=== PATIENT | male | born 1985 | race Hispanic/Latino ===

== ENCOUNTER 2022-03-16 23:27 | Emergency (ER) | payer OTHER ==
[~2022-03-16] VITALS: Ht 167.6 cm; Wt 72.6 kg
[2022-03-16] MEDS ORDERED: TETRACAINE HCL 0.5% 4 ML OPHTH SOLN ONE (23:48)
[2022-03-16] MEDS ORDERED: FLUORESCEIN SODIUM 1 STRIP STRIP ONE (23:48)
[2022-03-17] MEDS ORDERED: TETRACAINE HCL 0.5% 4 ML OPHTH SOLN OP SCH
[2022-03-17] MEDS: FLUORESCEIN SODIUM 1 STRIP STRIP OP SCH ×2 (00:11→00:25)
[2022-03-17] MEDS ORDERED: POLYOS OS (00:21)
[2022-03-17 00:23] VITALS: BP 132/88
== END 2022-03-17 00:29 | disposition home or self-care (01) ==
LOC: EDH 23:27
DX: T15.02XA Foreign body in cornea, left eye, initial encounter (principal); X58.XXXA Exposure to other specified factors, initial encounter; Y93.89 Activity, other specified; Y92.89 Other specified places as the place of occurrence of the external cause; Y99.8 Other external cause status
CPT/HCPCS: 65222

== ENCOUNTER 2023-01-18 14:24 | Emergency (ER) | payer OTHER ==
[~2023-01-18] VITALS: Ht 167.6 cm; Wt 72.6 kg
[~2023-01-18 14:24] MED LIST: POLYOS OS
[2023-01-18 15:07] LABS: BASOPHILS % (AUTO) 0.4 % (0.0-5.0); EOSINOPHILS % (AUTO) 1.9 % (0.0-8.0); HEMATOCRIT 42.1 % (42-54); LYMPHOCYTES % (AUTO) 29.5 % (21.0-51.0); MEAN CORPUSCULAR HEMOGLOBIN 30.8 pg (27.0-33.0); MEAN CORPUSCULAR VOLUME 90.7 fL (79-99); MONOCYTES % (AUTO) 9.4 % (3.0-13.0); NEUTROPHILS % (AUTO) 58.4 % (40.0-77.0); PLATELET COUNT (AUTO) 297 K/uL (130-400); RED BLOOD CELL COUNT(AUTO) 4.64 MIL/uL (4.50-6.20); RED CELL DISTRIBUTION WIDTH 11.6 % (11.0-15.5); WHITE BLOOD COUNT (AUTO) 5.3 K/uL (4.8-10.8)
[2023-01-18 15:10] LABS: APPEARANCE,URINE CLEAR (CLEAR); BILIRUBIN,URINE NEGATIVE (NEGATIVE); COLOR,URINE COLORLESS (YELLOW); GLUCOSE, URINE (UA) NEGATIVE (NEGATIVE); KETONES,URINE NEGATIVE (NEGATIVE); LEUKOCYTE ESTERASE ,URINE NEGATIVE Leu/uL (NEGATIVE); NITRATE,URINE NEGATIVE (NEGATIVE); OCCULT BLOOD,URINE NEGATIVE (NEGATIVE); PH,URINE 7.5 (5.0-8.0); PROTEIN,URINE NEGATIVE (NEGATIVE); UROBILINOGEN,URINE 0.2 mg/dL (0.2-1.0)
[2023-01-18 15:19] LABS: CREATININE 0.9 mg/dL (0.5-1.5); POTASSIUM 4.2 mmol/L (3.5-5.1)
[2023-01-18 15:26] LABS: TOTAL PROTEIN, SERUM 7.5 g/dL (6.0-8.3)
[2023-01-18] MEDS ORDERED: TAMS-1 PO (16:56)
[2023-01-18 17:12] VITALS: BP 122/73
== END 2023-01-18 17:43 | disposition home or self-care (01) ==
LOC: EDH 14:24
DX: N20.0 Calculus of kidney (principal); R10.11 Right upper quadrant pain; K21.9 Gastro-esophageal reflux disease without esophagitis; Z90.49 Acquired absence of other specified parts of digestive tract
CPT/HCPCS: 36415; 74176; 80053; 81003; 83690; 85025

== ENCOUNTER 2025-01-14 06:40 | Inpatient (IN) | payer SELFPAY ==
[~2025-01-14] VITALS: Ht 167.6 cm; Wt 80.9 kg
[~2025-01-14 06:40] MED LIST changes: +ONDA-243 PO; +TAMS-1 PO
--- NOTE | 2025-01-14 07:34 | ERN ---
General Chief Complaint: Other Problems Stated Complaint: ANAL PAIN Time Seen by MD: 07:13 Source: patient History of Present Illness Initial Comments PATIENT IS A 39-YEAR-OLD MALE COMING IN TO BE EVALUATED FOR RECTAL PAIN. PATIENT STATES THAT THE RECTAL PAIN IS GETTING WORSE THE LAST COUPLE OF DAYS. HE STATES THAT THE PAIN IS UNBEARABLE. Allergies: Coded Allergies: No Known Drug Allergies (Unverified Allergy, Unknown, 03/16/22) Home Meds Active Scripts Ondansetron (Ondansetron Odt) 4 Mg Tab.rapdis, 4 MG PO Q6HPRN PRN for nausea, #16 TAB 0 Refills Prov:YOBANY CORREA Sr., MD 07/20/23 Tamsulosin HCl (Flomax) 0.4 Mg Cap.er.24h, 0.4 MG PO DAILY for KIDNEY STONES for 10 Days, #10 CAPSULE. Prov:INESSA VARGAS DNP 01/18/23 Polymyxin B Sulfate/Tmp (Polytrim Ophth Soln) 20 Drop/Ml Opsol, 3 DROP OS QID for 5 Days, #10 ML 10 Refills Prov:FELIX MALCOLM MD 03/17/22 Past Medical History Past Medical History: GERD Past Surgical History: Cholecystectomy Social History Social History: Negative, Lives with family, Other ROS Dictation CONSTITUTIONAL: NO CHILLS, NO FEVER, NO WEAKNESS, NO DIAPHORESIS, NO MALAISE. HEAD/FACE: NO SIGNS OF TRAUMA. EENT: NO EYE PAIN, NO BLURRED VISION, NO TEARING, NO DOUBLE VISION, NO EAR PAIN, NO EAR DISCHARGE, NO NOSE PAIN, NO NASAL CONGESTION, NO THROAT PAIN, NO THROAT SWELLING, NO MOUTH PAIN. RESPIRATORY: NO COUGH, NO ORTHOPNEA, NO SOB, NO STRIDOR, NO WHEEZING. CARDIOVASCULAR: NO CHEST PAIN, NO EDEMA, NO PALPITATIONS, NO SYNCOPE. GASTROINTESTINAL/ABDOMINAL: NO ABDOMINAL PAIN, NO CONSTIPATION, NO DIARRHEA, NO NAUSEA, NO VOMITING. GENITOURINARY: NO ABNORMAL DISCHARGE, NO DYSURIA, NO FREQUENT URINATION, NO HEMATURIA. NO COMPLAINTS OF PAIN IN THE GENITALS. MUSCULOSKELETAL: NO BACK PAIN, NO GOUT, NO JOINT PAIN, NO JOINT SWELLING, NO MUSCLE PAIN, NO MUSCLE STIFFNESS, NO NECK PAIN. INTEGUMENTARY: NO CHANGE IN COLOR, NO CHANGE IN HAIR/NAILS, NO DRYNESS, NO LESION, NO LUMPS, NO RASH. NEUROLOGICAL/PSYCH: NO ANXIETY, NOT DEPRESSED, NO EMOTIONAL PROBLEM, NO HEADACHE, NO NUMBNESS, NO PRE-EXISTING DEFICIT, NO HISTORY OF SEIZURES, NO TREMORS, NO WEAKNESS. HEMATOLOGIC/LYMPHATIC: NOT ANEMIC, NO HISTORY OF BLOOD CLOTS, NO APPARENT BLEEDING, NO BRUISING, GLANDS NOT SWOLLEN. ALL SYSTEMS NEGATIVE, EXCEPT NOTED. Physical Exam Physical Exam Dictation VITAL SIGNS: REVIEWED. GENERAL APPEARANCE: ALERT, ORIENTED X3, NO ACUTE DISTRESS, OBESE. HEAD AND FACE: NON-TRAUMATIC. EYES: PERRL, PINK CONJUNCTIVAS, EYELID NO TRAUMA, ANTERIOR CHAMBER CLEAR. EARS: PINNAS INTACT AND NO SIGNS OF TRAUMA OR ERYTHEMA. EAR CANALS CLEAR AND NO DISCHARGE. TMS NO ERYTHEMA. NOSE: NO DISCHARGE, NO BLEEDING. OROPHARYNX: MOUTH NORMAL, TEETH NO CARIES, TONGUE PINK. PHARYNX CLEAR, NO ERYTHEMA. TONSILS NO EXUDATES, NO ABSCESSES NOTED. MUCOUS MEMBRANE MOIST. NECK: SUPPLE, NON-TENDER, NO THYROMEGALY, NO MASSES, NO JVD, NO BRUITS. BREAST: DEFERRED. CHEST: NO TENDERNESS, NO CREPITUS, NO PARADOXICAL MOVEMENT, NO RETRACTIONS. LUNGS: CLEAR, WELL-VENTILATED, SYMMETRIC, NO RALES, NO WHEEZING, NO RHONCHI, NO STRIDOR, GOOD BREATH SOUNDS BILATERALLY. HEART: REGULAR RATE, REGULAR RHYTHM, NO MURMUR, NO GALLOPS. VASCULAR: NO PERIPHERAL EDEMA. ABDOMEN: SOFT, POSITIVE BOWEL SOUNDS, NONDISTENDED, NO GUARDING, NONTENDER, NO REBOUND, NO MASSES NO HEPATOMEGALY, NO SPLENOMEGALY, NO NG'S SIGN, NO HERNIAS. RECTAL: DEFERRED. GENITAL: DEFERRED. NEUROLOGICAL: NORMAL SPEECH, GROSS MOTOR FUNCTION INTACT, GROSS SENSORY FUNCTION INTACT. MUSCULOSKELETAL: NECK NONTENDER, FULL RANGE OF MOTION, BACK NONTENDER, FULL RANGE OF MOTION. EXTREMITIES: NONTENDER, FULL RANGE OF MOTION. SKIN: COLOR PINK, DRY, NO TURGOR, NO RASH, NO LACERATIONS, NO ABRASIONS, NO CONTUSIONS. LYMPHATICS: DEFERRED. Results Laboratory and Microbiology Lab and Micro Result Laboratory Tests Test 01/14/25 07:47 White Blood Count 10.1 K/uL (4.8-10.8) Red Blood Count 4.78 MIL/uL (4.50-6.20) Hemoglobin 14.9 g/dL (14.0-18.0) Hematocrit 45.2 % (42-54) Mean Corpuscular Volume 94.6 fL (79-99) Mean Corpuscular Hemoglobin 31.2 pg (27.0-33.0) Mean Corpuscular Hemoglobin Concent 33.0 g/dL (32.0-36.0) Red Cell Distribution Width 12.0 % (11.0-15.5) Platelet Count 333 K/uL (130-400) Mean Platelet Volume 9.5 fL (7.5-10.5) Immature Granulocyte % (Auto) 0.7 % (0-1) Neutrophils (%) (Auto) 73.7 % (40.0-77.0) Lymphocytes (%) (Auto) 16.0 % (21.0-51.0) L Monocytes (%) (Auto) 7.7 % (3.0-13.0) Eosinophils (%) (Auto) 1.5 % (0.0-8.0) Basophils (%) (Auto) 0.4 % (0.0-5.0) Neutrophils # (Auto) 7.4 K/uL (1.8-7.7) Lymphocytes # (Auto) 1.6 K/uL (1.0-4.8) Monocytes # (Auto) 0.8 K/uL (0.1-1.0) Eosinophils # (Auto) 0.15 K/uL (0.00-0.70) Basophils # (Auto) 0.04 K/uL (0.00-0.20) Absolute Immature Granulocyte (auto 0.07 K/uL (0-1) Nucleated Red Blood Cells 0.0 % (0.0-0.19) Sodium Level 143 mmol/L (136-145) Potassium Level 3.9 mmol/L (3.5-5.1) Chloride Level 104 mmol/L (101-111) Carbon Dioxide Level 30 mmol/L (21-32) Blood Urea Nitrogen 8 mg/dL (7-18) Creatinine 1.0 mg/dL (0.5-1.3) Glomerular Filtration Rate Calc 97 mL/min (>90) Random Glucose 101 mg/dL (70-105) Total Calcium 8.9 mg/dL (8.5-10.1) Labs Reviewed?: Yes EKG/XRAY/US/CT/MRI CT Scan Comment [facility] [address] [place] [address] IMAGING REPORT Signed PATIENT: LUIS FERNANDO GREEN MR#: [id number] : 1985 SEX: M AGE: 39 LOCATION: [facility] ORDER 3 STATUS: [facility] REPORT#: [id number] SERVICE 2 REASON: rectal pain ORDERING PHYSICIAN: JHONATAN VARNER MD PROCEDURE: ABD PEL W - CT ABDOMEN/PELVIS W/CONTRAST CT ABDOMEN WITH CONTRAST. CT PELVIS WITH CONTRAST INDICATION: Rectal pain TECHNIQUE: Routine transaxial images using 5 mm slice thickness were obtained after the intravenous infusion of 75 mL of Omnipaque 350 without adverse effects. Oral contrast was not administered. Rectal contrast was not administered. Coronal and sagittal reformatted images acquired for interpretation. CT was performed with one or more of the following dose reduction techniques: Automated exposure control, adjustment of the mA and/or kV according to patient size, or use of iterative reconstruction technique. COMPARISON: 01/18/2023 FINDINGS: ABDOMEN: Heart size is normal. Visible lung bases are clear. The liver is normal in size and smooth in contour without lesions or biliary duct dilation. Diffuse low attenuation of the liver parenchyma suggests fatty change. The spleen is normal in size without lesions. The gallbladder is surgically absent. The pancreas appears normal without pancreatic duct dilation. The adrenal glands appear normal. Both kidneys appear unremarkable. Duplicated left ureter. Cortical nephrograms are symmetric and normal in appearance bilaterally. No evidence for intra-abdominal free air or organized fluid collection. No retrocrural, intraabdominal, or retroperitoneal lymphadenopathy identified. No aortic aneurysmal dilation or dissection identified. PELVIS: Tiny fat-containing nonobstructing left inguinal hernia. No evidence for free air or organized pelvic fluid collection. No significant pelvic adenopathy detected. 3.1 cm peripherally-enhancing perianal fluid collection on axial image 88. No associated air densities. Visualized small and large bowel loops appear unremarkable. No evidence for any rectal or perirectal abnormality. Terminal ileum appears normal. The appendix appears normal. The urinary bladder appears unremarkable. Visible osseous structures are intact. IMPRESSION: 1. 3.1 cm cyst perianal abscess, without evidence for any rectal or perirectal abnormality. 2. Hepatic steatosis. 3. Tiny fat-containing nonobstructing left inguinal hernia. 4. Additional minor findings, postsurgical changes, and pertinent negatives as reported. DICTATED BY: BRITTON MARKS MD DATE: 01/14/25 1011 ELECTRONICALLY SIGNED BY: BRITTON MARKS MD DATE: 01/14/25 1016 [facility] MDM: Differential diagnosis: Perirectal abscess, rectal pain, Rationale: Tests considered and ordered secondary to shared decision making include: labs, ECG and radiology Previous outside records reviewed: Old ER visits. Risk of complication and/or morbidity or mortality of patient management: None Medications-Per medication reconciliation Need for hospitalization: Patient does meet criteria for hospitalization. Need for emergency major/minor surgery: No There are no social concerns with this patient. Prescription drug management Prescriptions will include symptomatic care Patient's prior external medical records from other ER visits were reviewed by me as indicated. Prior testing and results from previous visits were reviewed. Prior tests were taken into account with medical decision making and resource utilization, independent historian/historians were used to obtain complete medical history. I independently interpreted the test that were performed, results were reviewed by me and considered findings on radiology if ordered. Medical management and examination interpretation discussions were had by me with other qualified healthcare professionals as indicated for the patient's care. HE WILL BE ADMITTED UNDER THE CARE OF [facility] FOR ONGOING MANAGEMENT OF PERIRECTAL ABSCESS. ED Course Orders Procedure Category Date Status Time Cbc With Differential LAB 01/14/25 Complete 07:36 Basic Metabolic Panel LAB 01/14/25 Complete 07:36 Ct Abdomen/Pelvis CT 01/14/25 Resulted W/Contrast 08:13 Iohexol (Omnipaque) PHA 01/14/25 Complete 08:45 Zosyn 3.375gm+Ns 50ml PHA 01/14/25 Complete (Zosyn 3.375gm+Ns 10:29 Hydromorphone 0.5mg PHA 01/14/25 In Process Syg (Dilaudid 0.5mg 11:30 Current Medications Medications (Trade) Dose Ordered Sig/Dane Route PRN Reason Start Time Stop Time Status Last Admin Dose Admin Hydromorphone HCl (DiLAUDid 0.5MG INJ) 0.5 mg ONCE ONCE IM 01/14/25 11:30 01/14/25 11:31 UNV Iohexol (Omnipaque) 75 ml STK-MED ONCE IV 01/14/25 08:45 01/14/25 08:45 DC Piperacillin Sod/ Tazobactam Sod (Zosyn 3.375gm+NS 50ml) 3.375 gm Q12H STAT IV 01/14/25 10:29 01/14/25 10:30 DC 01/14/25 10:38 Vital Signs Date Time Temp Pulse Resp B/P (MAP) Pulse Ox O2 Delivery O2 Flow Rate FiO2 01/14/25 07:49 98.4 73 17 142/89 99 Room Air* 0 21 01/14/25 06:41 98.6 82 18 137/92 98 Room Air* 0 21 01/14/25 06:41 98.6 77 18 137/92 99 Room Air DX & DISP Disposition: Inpatient Decision to Admit Time: 11:18 Departure Impression: Primary Impression: Perirectal abscess Condition: Stable Referrals: SELF,REFERRAL (PCP) JHONATAN VARNER MD Jan 14, 2025 07:34
[2025-01-14 07:59] LABS: BASOPHILS # (AUTO) 0.04 K/uL (0.00-0.20); BASOPHILS % (AUTO) 0.4 % (0.0-5.0); EOSINOPHILS # (AUTO) 0.15 K/uL (0.00-0.70); EOSINOPHILS % (AUTO) 1.5 % (0.0-8.0); HEMATOCRIT 45.2 % (42-54); IMMATURE GRANULOCYTE ABSOLUTE 0.07 K/uL (0-1); LYMPHOCYTES # (AUTO) 1.6 K/uL (1.0-4.8); MEAN CORPUSCULAR HEMOGLOBIN 31.2 pg (27.0-33.0); MEAN CORPUSCULAR VOLUME 94.6 fL (79-99); MONOCYTES # (AUTO) 0.8 K/uL (0.1-1.0); MONOCYTES % (AUTO) 7.7 % (3.0-13.0); NEUTROPHILS # (AUTO) 7.4 K/uL (1.8-7.7); NEUTROPHILS % (AUTO) 73.7 % (40.0-77.0); PLATELET COUNT (AUTO) 333 K/uL (130-400); RED BLOOD CELL COUNT(AUTO) 4.78 MIL/uL (4.50-6.20); WHITE BLOOD COUNT (AUTO) 10.1 K/uL (4.8-10.8)
[2025-01-14 08:05] LABS: POTASSIUM 3.9 mmol/L (3.5-5.1)
[2025-01-14] MEDS ORDERED: IOHEXOL-350 75 ML VIAL IV ONE (08:45)
--- NOTE | 2025-01-14 10:16 | HMCIMG ---
CT ABDOMEN WITH CONTRAST. CT PELVIS WITH CONTRAST INDICATION: Rectal pain TECHNIQUE: Routine transaxial images using 5 mm slice thickness were obtained after the intravenous infusion of 75 mL of Omnipaque 350 without adverse effects. Oral contrast was not administered. Rectal contrast was not administered. Coronal and sagittal reformatted images acquired for interpretation. CT was performed with one or more of the following dose reduction techniques: Automated exposure control, adjustment of the mA and/or kV according to patient size, or use of iterative reconstruction technique. COMPARISON: 01/18/2023 FINDINGS: ABDOMEN: Heart size is normal. Visible lung bases are clear. The liver is normal in size and smooth in contour without lesions or biliary duct dilation. Diffuse low attenuation of the liver parenchyma suggests fatty change. The spleen is normal in size without lesions. The gallbladder is surgically absent. The pancreas appears normal without pancreatic duct dilation. The adrenal glands appear normal. Both kidneys appear unremarkable. Duplicated left ureter. Cortical nephrograms are symmetric and normal in appearance bilaterally. No evidence for intra-abdominal free air or organized fluid collection. No retrocrural, intraabdominal, or retroperitoneal lymphadenopathy identified. No aortic aneurysmal dilation or dissection identified. PELVIS: Tiny fat-containing nonobstructing left inguinal hernia. No evidence for free air or organized pelvic fluid collection. No significant pelvic adenopathy detected. 3.1 cm peripherally-enhancing perianal fluid collection on axial image 88. No associated air densities. Visualized small and large bowel loops appear unremarkable. No evidence for any rectal or perirectal abnormality. Terminal ileum appears normal. The appendix appears normal. The urinary bladder appears unremarkable. Visible osseous structures are intact. IMPRESSION: 1. 3.1 cm cyst perianal abscess, without evidence for any rectal or perirectal abnormality. 2. Hepatic steatosis. 3. Tiny fat-containing nonobstructing left inguinal hernia. 4. Additional minor findings, postsurgical changes, and pertinent negatives as reported.
[2025-01-14] MEDS: ZOSYN 3.375GM +NS 50ML IV STA (10:38)
[2025-01-14] MEDS: hydroMORPHone 0.5 MG SYG (0.5MG/0.5ML) IM ONE (11:25)
--- NOTE | 2025-01-14 11:40 | HP ---
[facility] HISTORY AND PHYSICAL Date of Service: Jan 14, 2025 Time of Service: 11:38 HISTORY OF PRESENT ILLNESS: [ ] REVIEW OF SYSTEMS CONSTITUTIONAL: Denies fevers, chills, or night sweats. No unintentional weight loss reported. NEUROLOGICAL: Denies headache, amaurosis fugax, motor weakness, sensory deficit, vertigo/spinning sensation, gait abnormalities, or tremors. ENT: No hearing loss, otalgia, otorrhea, rhinitis, rhinorrhea, hoarseness, or sore throat. CARDIOVASCULAR: Denies any exertional angina, dyspnea on exertion, orthopnea, paroxysmal nocturnal dyspnea, palpitations, life-threatening arrhythmias, claudication. PULMONARY: Denies any shortness of breath, cough, phlegm/sputum, hemoptysis, pleuritic chest pain. SLEEP: Denies morning headaches, daytime somnolence or napping. Denies difficulty falling asleep, staying asleep, waking from sleep. Denies knowledge of snoring. GASTROINTESTINAL: Denies any type of dysphagia to either liquids or solids. Denies nausea, vomiting, pyrosis, early satiety, abdominal pain, diarrhea, constipation, or changes in stool consistency or caliber. Denies coffee-ground emesis, hematemesis, hematochezia, or melanotic stools. GENITOURINARY: Denies frequency, urgency, nocturia, hematuria or incontinence (Storage/Irritative symptoms.) Low urinary stream, straining to void, urinary intermittency or hesitancy, splitting of the voiding stream, terminal dribbling. ENDOCRINOLOGIC: Denies polyuria, polydipsia, polyphagia or heat/cold intolerances. HEMATOLOGIC: Denies thrombophilia/previous clots, or coagulopathy/bleeding disorders. ONCOLOGIC: Denies personal history of malignancy. DERMATOLOGIC: Denies rashes or pruritus. PSYCHIATRIC: Denies any suicidal or homicidal ideation. Denies hallucinations. PAST MEDICAL HISTORY: [ ] PAST SURGICAL HISTORY: [ ] PAST SOCIAL HISTORY: [ ] FAMILY HISTORY: [ ] Coded Allergies: No Known Drug Allergies (Unverified Allergy, Unknown, 03/16/22) PHYSICAL EXAM GENERAL APPEARANCE: The patient is awake, alert, and oriented, in no acute cardiopulmonary distress. NEUROLOGICAL: Cranial nerves II-XII grossly intact. Motor is 5/5 in bilateral upper and lower extremities proximal to distal. No sensory deficits. HEENT: Face is symmetric. Pupils are equal and reactive. Extraocular movements are intact. NECK: Supple. No JVD. No thyromegaly. No submental, submandibular, pre- /postauricular, occipital or supraclavicular lymphadenopathy. CHEST: Normal chest expansion. No Telemetry. LUNGS: Absence of any rales, rhonchi or any wheezing. CARDIOVASCULAR: Regular. S1 and S2 normal. No appreciable rubs, murmurs or gallops. ABDOMEN: Soft, nontender, and nondistended. There is no rebound, voluntary guarding, or rigidity. : Deferred. No Dunne. EXTREMITIES: Non-edematous and not cyanotic. No clubbing. Good capillary r efill. SKIN: No skin breakdown. Vital Sign (Last 24 Hours) 01/14/25 07:49 Temp 98.4 Pulse 73 Resp 17 B/P (MAP) 142/89 Pulse Ox 99 O2 Delivery Room Air* O2 Flow Rate 0 FiO2 21 LABS: Laboratory: Test 01/14/25 07:47 Range/Units White Blood Count 10.1 4.8-10.8 K/uL Red Blood Count 4.78 4.50-6.20 MIL/uL Hemoglobin 14.9 14.0-18.0 g/dL Hematocrit 45.2 42-54 % Mean Corpuscular Volume 94.6 79-99 fL Mean Corpuscular Hemoglobin 31.2 27.0-33.0 pg Mean Corpuscular Hemoglobin Concent 33.0 32.0-36.0 g/dL Red Cell Distribution Width 12.0 11.0-15.5 % Platelet Count 333 130-400 K/uL Mean Platelet Volume 9.5 7.5-10.5 fL Immature Granulocyte % (Auto) 0.7 0-1 % Neutrophils (%) (Auto) 73.7 40.0-77.0 % Lymphocytes (%) (Auto) 16.0 L 21.0-51.0 % Monocytes (%) (Auto) 7.7 3.0-13.0 % Eosinophils (%) (Auto) 1.5 0.0-8.0 % Basophils (%) (Auto) 0.4 0.0-5.0 % Neutrophils # (Auto) 7.4 1.8-7.7 K/uL Lymphocytes # (Auto) 1.6 1.0-4.8 K/uL Monocytes # (Auto) 0.8 0.1-1.0 K/uL Eosinophils # (Auto) 0.15 0.00-0.70 K/uL Basophils # (Auto) 0.04 0.00-0.20 K/uL Absolute Immature Granulocyte (auto 0.07 0-1 K/uL Nucleated Red Blood Cells 0.0 0.0-0.19 % Sodium Level 143 136-145 mmol/L Potassium Level 3.9 3.5-5.1 mmol/L Chloride Level 104 101-111 mmol/L Carbon Dioxide Level 30 21-32 mmol/L Blood Urea Nitrogen 8 7-18 mg/dL Creatinine 1.0 0.5-1.3 mg/dL Glomerular Filtration Rate Calc 97 >90 mL/min Random Glucose 101 70-105 mg/dL Total Calcium 8.9 8.5-10.1 mg/dL Current Medications Medications (Trade) Dose Ordered Sig/Dane Route PRN Reason Start Time Stop Time Status Last Admin Dose Admin Piperacillin Sod/ Tazobactam Sod (Zosyn 3.375gm+NS 50ml) 3.375 gm Q12H STAT IV 01/14/25 10:29 01/14/25 10:30 DC 01/14/25 10:38 3.375 GM DIAGNOSTICS / RADIOLOGY: [ ] ASSESSMENT: [ ] PLAN: [ ] FERCHO CHUN Jan 14, 2025 11:40
[2025-01-14] MEDS ORDERED: 0.9%NACL 50ML IV SCH (12:00)
[2025-01-14] MEDS ORDERED: ZOSYN 3.375GM +NS 50ML IVPB SCH (12:00)
[2025-01-14] MEDS ORDERED: acetaMINOPHEN 500 MG TABLET PO PRN ×2 (12:00)
[2025-01-14] MEDS: doCUSate SODIUM 100 MG CAP PO ONE (14:02)
[2025-01-14] MEDS: morPHINE 2 MG SYG IVP PRN (15:45)
--- NOTE | 2025-01-14 17:36 | CONS ---
CONSULT NOTE: Consulting physician: ED Consulting service: General surgery Reason for consultation: Perirectal abscess History of present illness: This is a 39-year-old male with no significant medical history that has been consulted to surgery after presenting to hospital with a several day history of rectal pain. Due to significant worsening of pain patient presented to the hospital for further evaluation. Initial imaging concerning for a cystic structure in the perirectal region measuring 3.1 cm. On physical exam patient with tenderness noted no significant induration or fluctuance present. Patient is currently NPO on IV antibiotics. Medical history: No reported Surgical history: Review of systems: General: No Fever, No Chills, No Night Sweats, No Fatigue, No Malaise, No Appetite, No Other HEENT: No Head Aches, No Visual Changes, No Eye Pain, No Ear Pain, No Dysphasia, No Sinus Congestion, No Post Nasal Drip, No Sore Throat, No Other Pulmonary: No Dyspnea, No Cough, No Pleuritic Chest Pain, No Other Cardiovascular: No: Chest Pain, Palpitations, Orthopnea, Paroxysmal No Dyspnea, Edema, Lt Headedness, Other Gastrointestinal: No: Nausea, Vomiting, Diarrhea, Constipation, Melena, Hematochezia, Other Genitourinary: No Dysuria, No Frequency, No Incontinence, No Hematuria, No Retention, No Other Musculoskeletal: No: other, neck pain, shoulder pain, arm pain, back pain, hand pain, leg pain, foot pain Skin: No Urticaria, No Rash, No Other Neurological: No: Weakness, Numbness, Incoordination, Change in speech, Confusion, Seizures, Other Physical exam: General: Awake alert and oriented Heart: Regular rate and rhythm} Lungs: Clear to auscultation no distress Abdomen: [Soft, nontender, nondistended Minimal fluctuance in the perirectal/pilonidal region no induration Assessment: This is a 39-year-old male with concerns of pilonidal/perirectal abscess Plan: This point in time patient will be scheduled for surgical intervention tomorrow with Dr. Puckett for incision and drainage of abscess Patient to be allowed diet today NPO at midnight Continue with IV fluids and IV antibiotics Surgical team to follow patient closely nursing to report any further acute events WALLY ANDINO Jr. Jan 14, 2025 17:36
--- NOTE | 2025-01-14 18:07 | NUR ---
PT DOES NOT TAKE ANY HOME MEDICATIONS.
[2025-01-14] MEDS: ZOSYN 3.375GM +NS 50ML IVPB SCH (18:25)
[2025-01-14 23:10] VITALS: BP 150/90; PULSE 83; RESP 18; TEMP 100.4; O2SAT 0
[2025-01-15] VITALS (28 sets, daily range): BP systolic 109–136; BP diastolic 64–89; PULSE 70–88; RESP 12–20; TEMP 97.9–208.2; O2SAT 95–98
[2025-01-15 04:33] LABS: BASOPHILS # (AUTO) 0.03 K/uL (0.00-0.20); BASOPHILS % (AUTO) 0.2 % (0.0-5.0); EOSINOPHILS # (AUTO) 0.11 K/uL (0.00-0.70); EOSINOPHILS % (AUTO) 0.9 % (0.0-8.0); HEMATOCRIT 45.4 % (42-54); IMMATURE GRANULOCYTE ABSOLUTE 0.07 K/uL (0-1); LYMPHOCYTES # (AUTO) 1.8 K/uL (1.0-4.8); LYMPHOCYTES % (AUTO) 13.5 % (21.0-51.0); MEAN CORPUSCULAR HEMOGLOBIN 31.5 pg (27.0-33.0); MEAN CORPUSCULAR HGB CONC 33.5 g/dL (32.0-36.0); MONOCYTES # (AUTO) 1.2 K/uL (0.1-1.0); MONOCYTES % (AUTO) 9.5 % (3.0-13.0); NEUTROPHILS # (AUTO) 9.7 K/uL (1.8-7.7); NEUTROPHILS % (AUTO) 75.4 % (40.0-77.0); PLATELET COUNT (AUTO) 330 K/uL (130-400); RED BLOOD CELL COUNT(AUTO) 4.83 MIL/uL (4.50-6.20); RED CELL DISTRIBUTION WIDTH 11.9 % (11.0-15.5); WHITE BLOOD COUNT (AUTO) 12.9 K/uL (4.8-10.8)
[2025-01-15 04:42] LABS: ALBUMIN 3.9 g/dL (3.5-5.0); BILIRUBIN,TOTAL 0.7 mg/dL (0.2-1.0); CREATININE 1.1 mg/dL (0.5-1.3); POTASSIUM 4.3 mmol/L (3.5-5.1); TOTAL PROTEIN, SERUM 7.9 g/dL (6.0-8.3)
[2025-01-15] MEDS: LACTATED RINGERS 1000ML 1,000 ML IV ONE (11:33)
[2025-01-15] MEDS ORDERED: LIDOCAINE PF 100MG/5ML (2%) SYRINGE 5ML ONE (12:01)
[2025-01-15] MEDS ORDERED: MIDAZOLAM HCL 1 MG/ML 2ML VIAL ONE (12:02)
[2025-01-15] MEDS ORDERED: rocuRONium bROMide 10MG/1ML 5ML VL ONE (12:02)
[2025-01-15] MEDS ORDERED: proPOFol 10 MG/ML 20ML VIAL IV ONE (12:02)
[2025-01-15] MEDS ORDERED: FENTanyl CITRate PF 50 MCG/1 ML 2ML VIAL ONE (12:03)
[2025-01-15] MEDS ORDERED: BUPIvacaine/PF 0.25% 30ML VIAL IJ ONE (12:09)
[2025-01-15] MEDS ORDERED: dexaMETHasone SOD PHOSPHATE 10MG/ML 1ML VIAL ONE (12:29)
[2025-01-15] MEDS ORDERED: ketOROlac 30MG VIAL (30MG/ML) ONE (12:29)
[2025-01-15] MEDS ORDERED: ondanSETRON 4MG INJ ONE (12:30)
[2025-01-15] MEDS: BUPIvacaine/PF 0.25% 10ML VIAL IJ ONE (12:33)
--- NOTE | 2025-01-15 12:46 | OP ---
Operative Note: DATE OF PROCEDURE: 01/15/25 SURGEON: ROULA CLEANING DO RIDE [employer]SEMBLY SUPERVISOR: None ANESTHESIA: General ANESTHESIOLOGIST/SUPERVISOR ORCHARD: TEREZA Mckeon PREOPERATIVE DIAGNOSIS: Perianal abscess POSTOPERATIVE DIAGNOSIS: Perianal abscess SYNOPSIS: None PROCEDURE: Incision and drainage of perianal abscess ESTIMATED BLOOD LOSS: 15 cc INDICATIONS: This is a 39-year-old male that presented to the emergency department for several days of perianal pain. Patient was afebrile and hemodynamically stable. He had a leukocytosis. CT scan showing fluid collection in the perianal region. On physical exam he had a firm indurated area in the posterior perianal region. So exquisitely tender. I recommended incision and drainage for suspected perianal abscess. I discussed the procedure in detail with the patient. All questions were answered. The patient expressed understanding and agreement with plan. DESCRIPTION OF PROCEDURE: The patient was placed on the operating table in the supine position. After adequate sedation the patient was intubated by anesthesia. Perioperative antibiotics were given. The patient was then placed in lithotomy position. The patient's buttocks were prepped and draped in the usual sterile fashion. A time-out was performed. An 18 gauge needle was used to locate the small perianal abscess. A 15 blade was used to make an incision over the needle directly onto the abscess. Copious purulent drainage was appreciated. Cultures were obtained. The wound was bluntly explored to free all loculations. The wound was copiously irrigated with sterile saline. The wound was packed with quarter-inch iodoform gauze and dressed with gauze, ABD, and mesh undergarment. The patient tolerated the procedure well. All in strument, needle, and sponge counts were correct at the end of the procedure. The patient was aroused from sedation, extubated, and transferred to the postanesthesia care unit in good condition. ROULA CLEANING DO Jan 15, 2025 12:46
--- NOTE | 2025-01-15 14:26 | PN ---
[facility] PROGRESS NOTE Date of Service: Jan 15, 2025 Time of Service: 14:21 SUBJECTIVE: [39-year-old male admitted for perirectal abscess, pain is being managed by IV pain medication. He went for debridement with Dr. Puckett. He continues with IV antibiotics. We will continue to follow. Cultures were sent we will monitor closely. ] REVIEW OF SYSTEMS CONSTITUTIONAL: Denies fevers, chills, or night sweats. No unintentional weight loss reported. NEUROLOGICAL: Denies headache, amaurosis fugax, motor weakness, sensory deficit, vertigo/spinning sensation, gait abnormalities, or tremors. ENT: No hearing loss, otalgia, otorrhea, rhinitis, rhinorrhea, hoarseness, or sore throat. CARDIOVASCULAR: Denies any exertional angina, dyspnea on exertion, orthopnea, paroxysmal nocturnal dyspnea, palpitations, life-threatening arrhythmias, claudication. PULMONARY: Denies any shortness of breath, cough, phlegm/sputum, hemoptysis, pleuritic chest pain. SLEEP: Denies morning headaches, daytime somnolence or napping. Denies difficulty falling asleep, staying asleep, waking from sleep. Denies knowledge of snoring. GASTROINTESTINAL: Denies any type of dysphagia to either liquids or solids. Denies nausea, vomiting, pyrosis, early satiety, abdominal pain, diarrhea, constipation, or changes in stool consistency or caliber. Denies coffee-ground emesis, hematemesis, hematochezia, or melanotic stools. GENITOURINARY: Denies frequency, urgency, nocturia, hematuria or incontinence (Storage/Irritative symptoms.) Low urinary stream, straining to void, urinary intermittency or hesitancy, splitting of the voiding stream, terminal dribbling. ENDOCRINOLOGIC: Denies polyuria, polydipsia, polyphagia or heat/cold intolerances. HEMATOLOGIC: Denies thrombophilia/previous clots, or coagulopathy/bleeding disorders. ONCOLOGIC: Denies personal history of malignancy. DERMATOLOGIC: Denies rashes or pruritus. PSYCHIATRIC: Denies any suicidal or homicidal ideation. Denies hallucinations. PHYSICAL EXAM GENERAL APPEARANCE: The patient is awake, alert, and oriented, in no acute cardiopulmonary distress. NEUROLOGICAL: Cranial nerves II-XII grossly intact. Motor is 5/5 in bilateral upper and lower extremities proximal to distal. No sensory deficits. HEENT: Face is symmetric. Pupils are equal and reactive. Extraocular movements are intact. NECK: Supple. No JVD. No thyromegaly. No submental, submandibular, pre- /postauricular, occipital or supraclavicular lymphadenopathy. CHEST: Normal chest expansion. No Telemetry. LUNGS: Absence of any rales, rhonchi or any wheezing. CARDIOVASCULAR: Regular. S1 and S2 normal. No appreciable rubs, murmurs or gallops. ABDOMEN: Soft, nontender, and nondistended. There is no rebound, voluntary guarding, or rigidity. : Deferred. No Dunne. EXTREMITIES: Non-edematous and not cyanotic. No clubbing. Good capillary refill. SKIN: No skin breakdown. Vital Signs (last 8hr) Date Time Temp Pulse Resp B/P (MAP) Pulse Ox O2 Delivery O2 Flow Rate FiO2 01/15/25 14:10 76 17 109/70 98 Nasal Cannula 2.0 01/15/25 13:55 79 17 114/75 98 Nasal Cannula 2.0 01/15/25 13:40 98.1 84 17 115/85 94 Nasal Cannula 2.0 01/15/25 13:33 98.1 85 16 121/84 98 Nasal Cannula 2.0 24 01/15/25 13:27 84 15 133/89 99 Nasal Cannula 2.0 01/15/25 13:22 85 17 136/88 100 Nasal Cannula 2.0 24 01/15/25 13:18 87 15 129/85 98 Nasal Cannula 2.0 24 01/15/25 13:13 84 18 131/88 100 Nasal Cannula 2.0 24 01/15/25 13:08 88 18 127/87 100 Nasal Cannula 2.0 24 01/15/25 13:03 83 16 122/86 100 Nonrebreathing Mask 10.0 100 01/15/25 12:58 81 15 112/80 100 Nonrebreathing Mask 10.0 100 01/15/25 12:53 76 12 120/75 100 Nonrebreathing Mask 10.0 100 01/15/25 12:48 98.1 83 12 115/66 100 Nonrebreathing Mask 10.0 100 01/15/25 11:40 98.4 88 18 131/86 98 Room Air 01/15/25 11:39 208.2 71 18 125/75 98 Room Air 01/15/25 11:09 97.9 71 18 125/75 98 Room Air 01/15/25 08:46 98.1 75 20 131/83 98 Room Air 01/15/25 07:40 98 Room Air* 0 21 LABS: Laboratory: Test 01/15/25 03:59 Range/Units White Blood Count 12.9 #H 4.8-10.8 K/uL Red Blood Count 4.83 4.50-6.20 MIL/uL Hemoglobin 15.2 14.0-18.0 g/dL Hematocrit 45.4 42-54 % Mean Corpuscular Volume 94.0 79-99 fL Mean Corpuscular Hemoglobin 31.5 27.0-33.0 pg Mean Corpuscular Hemoglobin Concent 33.5 32.0-36.0 g/dL Red Cell Distribution Width 11.9 11.0-15.5 % Platelet Count 330 130-400 K/uL Mean Platelet Volume 9.4 7.5-10.5 fL Immature Granulocyte % (Auto) 0.5 0-1 % Neutrophils (%) (Auto) 75.4 40.0-77.0 % Lymphocytes (%) (Auto) 13.5 L 21.0-51.0 % Monocytes (%) (Auto) 9.5 3.0-13.0 % Eosinophils (%) (Auto) 0.9 0.0-8.0 % Basophils (%) (Auto) 0.2 0.0-5.0 % Neutrophils # (Auto) 9.7 H 1.8-7.7 K/uL Lymphocytes # (Auto) 1.8 1.0-4.8 K/uL Monocytes # (Auto) 1.2 H 0.1-1.0 K/uL Eosinophils # (Auto) 0.11 0.00-0.70 K/uL Basophils # (Auto) 0.03 0.00-0.20 K/uL Absolute Immature Granulocyte (auto 0.07 0-1 K/uL Nucleated Red Blood Cells 0.0 0.0-0.19 % Sodium Level 135 L 136-145 mmol/L Potassium Level 4.3 3.5-5.1 mmol/L Chloride Level 98 L 101-111 mmol/L Carbon Dioxide Level 31 21-32 mmol/L Blood Urea Nitrogen 7 7-18 mg/dL Creatinine 1.1 0.5-1.3 mg/dL Glomerular Filtration Rate Calc 86 >90 mL/min Random Glucose 106 H 70-105 mg/dL Total Calcium 8.9 8.5-10.1 mg/dL Total Bilirubin 0.7 0.2-1.0 mg/dL Aspartate Amino Transf (AST/SGOT) 35 10-37 U/L Alanine Aminotransferase (ALT/SGPT) 93 H 12-78 U/L Alkaline Phosphatase 106 50-136 U/L Total Protein 7.9 6.0-8.3 g/dL Albumin 3.9 3.5-5.0 g/dL Current Medications Medications (Trade) Dose Ordered Sig/Dane Route PRN Reason Start Time Stop Time Status Last Admin Dose Admin Acetaminophen (TYLenol 500MG TAB) 1,000 mg Q6H PRN PO MILD PAIN (1-3) 01/14/25 12:00 02/13/25 11:59 Acetaminophen (TYLenol 500MG TAB) 1,000 mg Q6H PRN PO TEMPERATURE GREATER THAN 100.4 01/14/25 12:00 02/13/25 11:59 Morphine Sulfate (morPHINE 2MG SYG) 1 mg Q4PRN PRN IVP MODERATE PAIN (4-6) 01/15/25 10:00 01/22/25 09:59 Morphine Sulfate (morPHINE 2MG SYG) 2 mg TIDP PRN IVP SEVERE PAIN (7-10) 01/14/25 12:00 01/21/25 11:59 01/14/25 23:40 2 MG Piperacillin Sod/ Tazobactam Sod (Zosyn 3.375gm+NS 50ml) 3.375 gm Q12H STAT IV 01/14/25 10:29 01/14/25 10:30 DC 01/14/25 10:38 3.375 GM Piperacillin Sod/ Tazobactam Sod (Zosyn 3.375gm+NS 50ml) 3.375 gm Q8H IVPB 01/14/25 12:00 01/14/25 11:54 DC Piperacillin Sod/ Tazobactam Sod (Zosyn 3.375gm+NS 50ml) 3.375 gm Q8H IVPB 01/14/25 18:30 01/24/25 18:29 01/15/25 10:21 3.375 GM Sodium Chloride (NS 50ml) 50 ml AD IV 01/14/25 12:00 01/14/25 11:53 DC DIAGNOSTICS / RADIOLOGY: [ ] ASSESSMENT: [Sepsis due to perirectal abscess, POA Suspected pilonidal/perirectal abscess, POA ] History of GERD PLAN: [ Patient to be admitted in medical floor Continue with IV antibiotics Surgeon has been consulted for debridement, patient is status post incision and debridement of perianal abscess We will consult Infectious Disease for perirectal abscess Continue with pain management Continue with GI and DVT prophylaxis Labs tomorrow Case discussed with Dr. Hortencia Puga above plan was formulated ] ATTESTATION BY PHYSICIAN I have seen and examined the patient. I reviewed the documentation, medical decision making, and treatment plan as noted by the mid-level provider above. I agree with the findings and plan of care. Leanna Puga MD, [facility] Jan 15, 2025 14:26
[2025-01-15] MEDS: morPHINE 2 MG SYG IVP PRN (14:59)
[2025-01-16] VITALS (7 sets, daily range): BP systolic 97–131; BP diastolic 63–87; PULSE 66–91; RESP 16–20; TEMP 97.9–98.4; O2SAT 95
[2025-01-16 06:18] LABS: HEMATOCRIT 43.7 % (42-54); MEAN CORPUSCULAR HEMOGLOBIN 31.3 pg (27.0-33.0); MEAN CORPUSCULAR HGB CONC 33.6 g/dL (32.0-36.0); MEAN CORPUSCULAR VOLUME 93.2 fL (79-99); RED BLOOD CELL COUNT(AUTO) 4.69 MIL/uL (4.50-6.20); RED CELL DISTRIBUTION WIDTH 11.8 % (11.0-15.5); WHITE BLOOD COUNT (AUTO) 11.3 K/uL (4.8-10.8)
[2025-01-16 06:46] LABS: CREATININE 0.9 mg/dL (0.5-1.3); POTASSIUM 4.6 mmol/L (3.5-5.1)
--- NOTE | 2025-01-16 09:36 | PN ---
[facility] PROGRESS NOTE Date of Service: Jan 16, 2025 Time of Service: 09:33 SUBJECTIVE: [39-year-old male admitted for perirectal abscess, pain is being managed by IV pain medication. He went for debridement with Dr. Puckett. We will continue to follow. Cultures were sent we will monitor closely. Patient evaluated in the room, still with pain. I discussed that we are still awaiting for cultures to come out. For now he will continue with IV antibiotics. ] REVIEW OF SYSTEMS CONSTITUTIONAL: Denies fevers, chills, or night sweats. No unintentional weight loss reported. NEUROLOGICAL: Denies headache, amaurosis fugax, motor weakness, sensory deficit, vertigo/spinning sensation, gait abnormalities, or tremors. ENT: No hearing loss, otalgia, otorrhea, rhinitis, rhinorrhea, hoarseness, or sore throat. CARDIOVASCULAR: Denies any exertional angina, dyspnea on exertion, orthopnea, paroxysmal nocturnal dyspnea, palpitations, life-threatening arrhythmias, claudication. PULMONARY: Denies any shortness of breath, cough, phlegm/sputum, hemoptysis, pleuritic chest pain. SLEEP: Denies morning headaches, daytime somnolence or napping. Denies difficulty falling asleep, staying asleep, waking from sleep. Denies knowledge of snoring. GASTROINTESTINAL: Denies any type of dysphagia to either liquids or solids. Denies nausea, vomiting, pyrosis, early satiety, abdominal pain, diarrhea, constipation, or changes in stool consistency or caliber. Denies coffee-ground emesis, hematemesis, hematochezia, or melanotic stools. GENITOURINARY: Denies frequency, urgency, nocturia, hematuria or incontinence (Storage/Irritative symptoms.) Low urinary stream, straining to void, urinary intermittency or hesitancy, splitting of the voiding stream, terminal dribbling. ENDOCRINOLOGIC: Denies polyuria, polydipsia, polyphagia or heat/cold intolerances. HEMATOLOGIC: Denies thrombophilia/previous clots, or coagulopathy/bleeding disorders. ONCOLOGIC: Denies personal history of malignancy. DERMATOLOGIC: Denies rashes or pruritus. PSYCHIATRIC: Denies any suicidal or homicidal ideation. Denies hallucinations. PHYSICAL EXAM GENERAL APPEARANCE: The patient is awake, alert, and oriented, in no acute cardiopulmonary distress. NEUROLOGICAL: Cranial nerves II-XII grossly intact. Motor is 5/5 in bilateral upper and lower extremities proximal to distal. No sensory deficits. HEENT: Face is symmetric. Pupils are equal and reactive. Extraocular movements are intact. NECK: Supple. No JVD. No thyromegaly. No submental, submandibular, pre-/ postauricular, occipital or supraclavicular lymphadenopathy. CHEST: Normal chest expansion. No Telemetry. LUNGS: Absence of any rales, rhonchi or any wheezing. CARDIOVASCULAR: Regular. S1 and S2 normal. No appreciable rubs, murmurs or gallops. ABDOMEN: Soft, nontender, and nondistended. There is no rebound, voluntary guarding, or rigidity. : Deferred. No Dunne. EXTREMITIES: Non-edematous and not cyanotic. No clubbing. Good capillary refill. SKIN: No skin breakdown. Vital Signs (last 8hr) Date Time Temp Pulse Resp B/P (MAP) Pulse Ox O2 Delivery O2 Flow Rate FiO2 01/16/25 07:43 98.1 66 16 97/67 96 Room Air 01/16/25 04:00 98.1 71 18 117/68 96 Room Air LABS: Laboratory: Test 01/16/25 06:02 01/15/25 03:59 Range/Units White Blood Count 11.3 H 4.8-10.8 K/uL Red Blood Count 4.69 4.50-6.20 MIL/uL Hemoglobin 14.7 14.0-18.0 g/dL Hematocrit 43.7 42-54 % Mean Corpuscular Volume 93.2 79-99 fL Mean Corpuscular Hemoglobin 31.3 27.0-33.0 pg Mean Corpuscular Hemoglobin Concent 33.6 32.0-36.0 g/dL Red Cell Distribution Width 11.8 11.0-15.5 % Platelet Count 369 130-400 K/uL Mean Platelet Volume 9.3 7.5-10.5 fL Nucleated Red Blood Cells 0.0 0.0-0.19 % Sodium Level 137 136-145 mmol/L Potassium Level 4.6 3.5-5.1 mmol/L Chloride Level 103 101-111 mmol/L Carbon Dioxide Level 26 21-32 mmol/L Blood Urea Nitrogen 11 7-18 mg/dL Creatinine 0.9 0.5-1.3 mg/dL Glomerular Filtration Rate Calc 110 >90 mL/min Random Glucose 128 H 70-105 mg/dL Total Calcium 9.3 8.5-10.1 mg/dL Immature Granulocyte % (Auto) 0.5 0-1 % Neutrophils (%) (Auto) 75.4 40.0-77.0 % Lymphocytes (%) (Auto) 13.5 L 21.0-51.0 % Monocytes (%) (Auto) 9.5 3.0-13.0 % Eosinophils (%) (Auto) 0.9 0.0-8.0 % Basophils (%) (Auto) 0.2 0.0-5.0 % Neutrophils # (Auto) 9.7 H 1.8-7.7 K/uL Lymphocytes # (Auto) 1.8 1.0-4.8 K/uL Monocytes # (Auto) 1.2 H 0.1-1.0 K/uL Eosinophils # (Auto) 0.11 0.00-0.70 K/uL Basophils # (Auto) 0.03 0.00-0.20 K/uL Absolute Immature Granulocyte (auto 0.07 0-1 K/uL Total Bilirubin 0.7 0.2-1.0 mg/dL Aspartate Amino Transf (AST/SGOT) 35 10-37 U/L Alanine Aminotransferase (ALT/SGPT) 93 H 12-78 U/L Alkaline Phosphatase 106 50-136 U/L Total Protein 7.9 6.0-8.3 g/dL Albumin 3.9 3.5-5.0 g/dL Current Medications Medications (Trade) Dose Ordered Sig/Dane Route PRN Reason Start Time Stop Time Status Last Admin Dose Admin Acetaminophen (TYLenol 500MG TAB) 1,000 mg Q6H PRN PO MILD PAIN (1-3) 01/14/25 12:00 02/13/25 11:59 Acetaminophen (TYLenol 500MG TAB) 1,000 mg Q6H PRN PO TEMPERATURE GREATER THAN 100.4 01/14/25 12:00 02/13/25 11:59 Morphine Sulfate (morPHINE 2MG SYG) 1 mg Q4PRN PRN IVP MODERATE PAIN (4-6) 01/15/25 10:00 01/22/25 09:59 01/15/25 14:59 1 MG Morphine Sulfate (morPHINE 2MG SYG) 2 mg TIDP PRN IVP SEVERE PAIN (7-10) 01/14/25 12:00 01/21/25 11:59 01/14/25 23:40 2 MG Piperacillin Sod/ Tazobactam Sod (Zosyn 3.375gm+NS 50ml) 3.375 gm Q12H STAT IV 01/14/25 10:29 01/14/25 10:30 DC 01/14/25 10:38 3.375 GM Piperacillin Sod/ Tazobactam Sod (Zosyn 3.375gm+NS 50ml) 3.375 gm Q8H IVPB 01/14/25 12:00 01/14/25 11:54 DC Piperacillin Sod/ Tazobactam Sod (Zosyn 3.375gm+NS 50ml) 3.375 gm Q8H IVPB 01/14/25 18:30 01/24/25 18:29 01/16/25 01:21 3.375 GM Sodium Chloride (NS 50ml) 50 ml AD IV 01/14/25 12:00 01/14/25 11:53 DC DIAGNOSTICS / RADIOLOGY: [ ] ASSESSMENT: [Sepsis due to perirectal abscess, POA Suspected pilonidal/perirectal abscess, POA ] History of GERD PLAN: [ Patient to be admitted in medical floor Continue with IV antibiotics Surgeon has been consulted for debridement, patient is status post incision and debridement of perianal abscess POD #2 We will consult Infectious Disease for perirectal abscess Continue with pain management Continue with GI and DVT prophylaxis Labs tomorrow Case discussed with Dr. Hortencia Puga above plan was formulated ] ATTESTATION BY PHYSICIAN I have seen and examined the patient. I reviewed the documentation, medical decision making, and treatment plan as noted by the mid-level provider above. I agree with the findings and plan of care. Leanna Puga MD, [facility] Jan 16, 2025 09:36
--- NOTE | 2025-01-16 16:30 | NUR ---
WOUND DRESSING: PER MD ORDER PT WOUND TO PERIRECTAL AREA WAS CLEANSED WITH NS, PAT DRY AND PACKED WITH 1/4IN IODOFORM, 4X4 AND ABD PAD WAS APPLIED OVER. FAMILY (SISTER AND ) AT BEDSIDE WERE TAUGHT AND STATED UNDERSTANDING. PT WAS PRE MEDICATED AND LAURE WELL.
--- NOTE | 2025-01-16 17:00 | NUR ---
SPOKE TO PATIENT AND FAMILY AT [facility] PLAN OF CARE. PATIENT STATES INDEPENDENT, ACTIVE NO SERVICES- GOOD FAMILY SUPPORT STATES THAT HIS BROTHER IN LAW RECENTLY ALSO HAD WOUND THAT NEEDED PACKING AND HIS SISTER LEARNED HOW TO DO IT. STATES THAT JUST NOW NURSE SID WAS TEACHING HIS SISTER HOW TO DO IT FOR HIM BOTH PATIENT AND SISTER STATE THAT THEY WILL BE ABLE TO DO IT. ADVISED THEM THAT DR. CHAVIS ROUNDED, STATS HE COULD GO TO THEIR CLINIC IN [place] FOR DRESSING CHANGES AND SURVEILLANCE. RN TO ENSURE THAT ON DISCHARGE WOUND CARE IS SET UP FOR PATIENT, STILL WAITING ON MED RECS FROM ID. CM TO FOLLOW IF ANY FURTHER NEEDS.
--- NOTE | 2025-01-16 17:15 | PN ---
Postop day one after perirectal I and D. patient reporting he had a bowel movement today. No nausea no vomiting. Pain is very well controlled too far. Wound care has not been done yet. Vital signs reviewed Assessment and plan When nursing does wound care changes her to notify me if they are still any purulent drainage. If there is any concerns we will re-evaluate again tomorrow. If no concerns then okay to teach family members to do wound care and to discharge patient on stool softeners and b.i.d. wound care. Sitz baths after every bowel movement. Follow up in the office in one week for wound care follow up. Vitals/Labs Vital Signs Date Time Temp Pulse Resp B/P (MAP) Pulse Ox O2 Delivery O2 Flow Rate FiO2 01/16/25 15:10 97.9 75 16 111/70 98 Room Air 01/15/25 20:00 0 21 Laboratory Tests 01/16/25 06:02 Medications Current Medications Iohexol 75 ml STK-MED ONCE IV; Start 01/14/25 at 08:45; Stop 01/14/25 at 08:45; Status DC Piperacillin Sod/ Tazobactam Sod 3.375 gm Q12H STAT IV Last administered on 01/14/25at 10:38; Start 01/14/25 at 10:29; Stop 01/14/25 at 10:30; Status DC Hydromorphone HCl 0.5 mg ONCE ONCE IM Last administered on 01/14/25at 11:25; Start 01/14/25 at 11:30; Stop 01/14/25 at 11:31; Status DC Morphine Sulfate 2 mg TIDP PRN IVP Last administered on 01/16/25at 16:10; Start 01/14/25 at 12:00; Stop 01/21/25 at 11:59 Piperacillin Sod/ Tazobactam Sod 3.375 gm Q8H IVPB; Start 01/14/25 at 12:00; Stop 01/14/25 at 11:54; Status DC Sodium Chloride 50 ml AD IV; Start 01/14/25 at 12:00; Stop 01/14/25 at 11:53; Status DC Acetaminophen 1,000 mg Q6H PRN PO; Start 01/14/25 at 12:00; Stop 02/13/25 at 11:59 Acetaminophen 1,000 mg Q6H PRN PO; Start 01/14/25 at 12:00; Stop 02/13/25 at 11:59 Docusate Sodium 100 mg BIDPRN ONCE PO Last administered on 01/14/25at 14:02; Start 01/14/25 at 12:00; Stop 01/14/25 at 12:01; Status DC Piperacillin Sod/ Tazobactam Sod 3.375 gm Q8H IVPB Last administered on 01/16/25at 11:49; Start 01/14/25 at 18:30; Stop 01/24/25 at 18:29 Morphine Sulfate 1 mg Q4PRN PRN IVP Last administered on 01/15/25at 14:59; Start 01/15/25 at 10:00; Stop 01/22/25 at 09:59 Lactated Ringer's 1,000 ml @ As Directed STK-MED ONCE IV; Start 01/15/25 at 11:33; Stop 01/15/25 at 11:33; Status DC Lidocaine HCl 100 mg STK-MED ONCE .ROUTE; Start 01/15/25 at 12:01; Stop 01/15/25 at 12:02; Status DC Midazolam HCl 2 mg STK-MED ONCE .ROUTE; Start 01/15/25 at 12:02; Stop 01/15/25 at 12:02; Status DC Propofol 200 mg STK-MED ONCE IV; Start 01/15/25 at 12:02; Stop 01/15/25 at 12:03; Status DC Rocuronium [place] 50 mg STK-MED ONCE .ROUTE; Start 01/15/25 at 12:02; Stop 01/15/25 at 12:03; Status DC Fentanyl Citrate 100 mcg STK-MED ONCE .ROUTE; Start 01/15/25 at 12:03; Stop 01/15/25 at 12:03; Status DC Bupivacaine HCl 2.5 mg STK-MED ONCE IJ; Start 01/15/25 at 12:09; Stop 01/15/25 at 12:10; Status DC Ketorolac Tromethamine 30 mg STK-MED ONCE .ROUTE; Start 01/15/25 at 12:29; Stop 01/15/25 at 12:31; Status DC Dexamethasone Sodium Phosphate 10 mg STK-MED ONCE .ROUTE; Start 01/15/25 at 12:29; Stop 01/15/25 at 12:31; Status DC Ondansetron HCl 4 mg STK-MED ONCE .ROUTE; Start 01/15/25 at 12:30; Stop 01/15/25 at 12:31; Status DC Bupivacaine HCl 5 mg STK-MED ONCE IJ Last administered on 01/15/25at 12:33; Start 01/15/25 at 12:33; Stop 01/15/25 at 13:00; Status DC MARZENA CHAVIS MD Jan 16, 2025 17:15
[2025-01-16 19:14] LABS: HEMOGLOBIN A1C 5.4 % (4.0-6.0)
--- NOTE | 2025-01-16 22:04 | PN ---
INFECTIOUS DISEASE FOLLOWUP NOTE DATE OF SERVICE: 01/16/2025 SUBJECTIVE: The patient is seen and examined at bedside. No fever or chills. Still complaining of pain to the perirectal area. No chest pain, no palpitation, no orthopnea. Denied dysuria or urinary frequency. PHYSICAL EXAMINATION: VITAL SIGNS: Temperature 97.3. EYES: No icterus. Pupils equal and reactive. HENT: No oral thrush seen. Moist oral mucosa. NECK: Supple. No JVD or thyromegaly. LUNGS: Good air entry. No rales, no rhonchi. CARDIOVASCULAR: S1, S2 regular. No murmur heard. ABDOMEN: Soft, nontender. Bowel sound is present. CENTRAL NERVOUS SYSTEM: Awake, alert, oriented x 3. No focal deficits. SKIN: No rashes, no itchiness. LYMPHATIC: No peripheral lymphadenopathy. BACK: No deformity, no pressure ulcer. RECTAL: Wound in the perirectal area ____. ASSESSMENT: A 39-year-old male with multiple problems, which include, * Perirectal abscess ____. * Obesity. PLAN: * Continue wound care. * Continue Zosyn. * Continue pain management. * Continue antiemetics. * Continue GI prophylaxis. * Monitor electrolytes. TID: [id number] RECEIPT: [id number]
[2025-01-17] VITALS: BP 115/72; PULSE 63; RESP 20; TEMP 97.8
[2025-01-17 04:00] VITALS: BP 106/63; PULSE 64; RESP 20; TEMP 97.7
[2025-01-17 05:45] LABS: MEAN CORPUSCULAR HGB CONC 33.3 g/dL (32.0-36.0); MEAN CORPUSCULAR VOLUME 96.2 fL (79-99); RED BLOOD CELL COUNT(AUTO) 4.47 MIL/uL (4.50-6.20); RED CELL DISTRIBUTION WIDTH 12.2 % (11.0-15.5); WHITE BLOOD COUNT (AUTO) 9.1 K/uL (4.8-10.8)
[2025-01-17 05:56] LABS: CREATININE 1.3 mg/dL (0.5-1.3); POTASSIUM 3.7 mmol/L (3.5-5.1)
[2025-01-17 08:05] VITALS: BP 107/74; PULSE 58; RESP 20; TEMP 98
[2025-01-17] MEDS ORDERED: PoTASSium chloRIDE 20MEQ ER 20 MEQ ERTAB PO PRN (10:00)
[2025-01-17] MEDS ORDERED: ondanSETRON 4MG TABLET PO PRN (10:00)
[2025-01-17] MEDS ORDERED: PoTASSium chl 10% ELIXIR 20MEQ 20 MEQ/15 ML UDCUP PO PRN (10:00)
[2025-01-17] MEDS ORDERED: PoTASSium chloRIDE 20MEQ/100ML 100 ML IV PRN (10:00)
[2025-01-17] MEDS ORDERED: MAGNESIUM 2GM PREMIX 50ML 50 ML IV PRN (10:00)
[2025-01-17 12:06] VITALS: BP 111/68; PULSE 71; RESP 20; TEMP 98.3
--- NOTE | 2025-01-17 12:16 | PN ---
No acute events reported. Sister was start on the wound care and had a pack. Patient tolerated it well. Assessment and plan once the antibiotics are set for oral antibiotics okay to discharge patient with wound care b.i.d.. Follow up in the office in one week for wound care follow up with my office PGS wound care Vitals/Labs Vital Signs Date Time Temp Pulse Resp B/P (MAP) Pulse Ox O2 Delivery O2 Flow Rate FiO2 01/17/25 12:06 98.2 71 20 111/68 97 Room Air 01/16/25 20:00 0 21 Laboratory Tests 01/17/25 05:35 Medications Current Medications Iohexol 75 ml STK-MED ONCE IV; Start 01/14/25 at 08:45; Stop 01/14/25 at 08:45; Status DC Piperacillin Sod/ Tazobactam Sod 3.375 gm Q12H STAT IV Last administered on 01/14/25at 10:38; Start 01/14/25 at 10:29; Stop 01/14/25 at 10:30; Status DC Hydromorphone HCl 0.5 mg ONCE ONCE IM Last administered on 01/14/25at 11:25; Start 01/14/25 at 11:30; Stop 01/14/25 at 11:31; Status DC Morphine Sulfate 2 mg TIDP PRN IVP Last administered on 01/17/25at 05:33; Start 01/14/25 at 12:00; Stop 01/17/25 at 09:52; Status DC Piperacillin Sod/ Tazobactam Sod 3.375 gm Q8H IVPB; Start 01/14/25 at 12:00; Stop 01/14/25 at 11:54; Status DC Sodium Chloride 50 ml AD IV; Start 01/14/25 at 12:00; Stop 01/14/25 at 11:53; Status DC Acetaminophen 1,000 mg Q6H PRN PO; Start 01/14/25 at 12:00; Stop 02/13/25 at 11:59 Acetaminophen 1,000 mg Q6H PRN PO; Start 01/14/25 at 12:00; Stop 02/13/25 at 11:59 Docusate Sodium 100 mg BIDPRN ONCE PO Last administered on 01/14/25at 14:02; Start 01/14/25 at 12:00; Stop 01/14/25 at 12:01; Status DC Piperacillin Sod/ Tazobactam Sod 3.375 gm Q8H IVPB Last administered on 01/17/25at 10:35; Start 01/14/25 at 18:30; Stop 01/24/25 at 18:29 Morphine Sulfate 1 mg Q4PRN PRN IVP Last administered on 01/15/25at 14:59; Start 01/15/25 at 10:00; Stop 01/22/25 at 09:59 Lactated Ringer's 1,000 ml @ As Directed STK-MED ONCE IV; Start 01/15/25 at 11:33; Stop 01/15/25 at 11:33; Status DC Lidocaine HCl 100 mg STK-MED ONCE .ROUTE; Start 01/15/25 at 12:01; Stop 01/15/25 at 12:02; Status DC Midazolam HCl 2 mg STK-MED ONCE .ROUTE; Start 01/15/25 at 12:02; Stop 01/15/25 at 12:02; Status DC Propofol 200 mg STK-MED ONCE IV; Start 01/15/25 at 12:02; Stop 01/15/25 at 12:03; Status DC Rocuronium [place] 50 mg STK-MED ONCE .ROUTE; Start 01/15/25 at 12:02; Stop 01/15/25 at 12:03; Status DC Fentanyl Citrate 100 mcg STK-MED ONCE .ROUTE; Start 01/15/25 at 12:03; Stop 01/15/25 at 12:03; Status DC Bupivacaine HCl 2.5 mg STK-MED ONCE IJ; Start 01/15/25 at 12:09; Stop 01/15/25 at 12:10; Status DC Ketorolac Tromethamine 30 mg STK-MED ONCE .ROUTE; Start 01/15/25 at 12:29; Stop 01/15/25 at 12:31; Status DC Dexamethasone Sodium Phosphate 10 mg STK-MED ONCE .ROUTE; Start 01/15/25 at 12:29; Stop 01/15/25 at 12:31; Status DC Ondansetron HCl 4 mg STK-MED ONCE .ROUTE; Start 01/15/25 at 12:30; Stop 01/15/25 at 12:31; Status DC Bupivacaine HCl 5 mg STK-MED ONCE IJ Last administered on 01/15/25at 12:33; Start 01/15/25 at 12:33; Stop 01/15/25 at 13:00; Status DC Potassium Chloride 100 ml @ 100 mls/hr AD PRN IV; Start 01/17/25 at 10:00; Stop 02/16/25 at 09:59 Potassium Chloride 20 meq AD PRN PO; Start 01/17/25 at 10:00; Stop 02/16/25 at 09:59 Potassium Chloride 20 meq AD PRN PO; Start 01/17/25 at 10:00; Stop 02/16/25 at 09:59 Magnesium Sulfate 50 ml @ 0 mls/hr PROTOCOL PRN IV; Start 01/17/25 at 10:00; Stop 02/16/25 at 09:59 Famotidine 20 mg BID PO; Start 01/17/25 at 21:00; Stop 02/16/25 at 20:59 Ondansetron HCl 4 mg Q6H PRN PO; Start 01/17/25 at 10:00; Stop 02/16/25 at 09:59 Morphine Sulfate 2 mg TID PRN IVP; Start 01/17/25 at 10:00; Stop 01/21/25 at 11:59 MARZENA CHAVIS MD Jan 17, 2025 12:16
--- NOTE | 2025-01-17 14:00 | DS ---
Discharge Summary Hospital Course Summary: This is a 39-year-old male with no significant medical history that has been consulted to surgery after presenting to hospital with a several day history of rectal pain. Due to significant worsening of pain patient presented to the hospital for further evaluation. Initial imaging concerning for a cystic st ructure in the perianal region measuring 3.1 cm. On physical exam patient with tenderness noted no significant induration or fluctuance present. Patient is currently NPO on IV antibiotics. I&D of the perianal abscess has been performed by Dr. Cleaning. And patient is continued on Zosyn. Dressings have been changed and wound has been packed, family has been taught how to help with the packing of the wound and changed dressings. Surgery also recommended Sitz baths and want the patient to follow outpatient in 1 week for evaluation and further management. Patient is deemed stable and will be discharged. Infectious disease doctor saw the patient today and recommended oral transition. And he wrote the antibody strip for the patient. Patient will be discharged today. Workforce Planner(s): Wound management, Infectious Disease, General surgery Procedure(s): Operative Note: DATE OF PROCEDURE: 01/15/25 SURGEON: ROULA CLEANING DO SALES AGENT [employer] INSURANCE: None ANESTHESIA: General ANESTHESIOLOGIST/BATHING SUIT MAKER: TEREZA Mckeon PREOPERATIVE DIAGNOSIS: Perianal abscess POSTOPERATIVE DIAGNOSIS: Perianal abscess SYNOPSIS: None PROCEDURE: Incision and drainage of perianal abscess ESTIMATED BLOOD LOSS: 15 cc INDICATIONS: This is a 39-year-old male that presented to the emergency department for several days of perianal pain. Patient was afebrile and he modynamically stable. He had a leukocytosis. CT scan showing fluid collection in the perianal region. On physical exam he had a firm indurated area in the posterior perianal region. So exquisitely tender. I recommended incision and drainage for suspected perianal abscess. I discussed the procedure in detail with the patient. All questions were answered. The patient expressed understanding and agreement with plan. DESCRIPTION OF PROCEDURE: The patient was placed on the operating table in the supine position. After adequate sedation the patient was intubated by anesthesia. Perioperative antibiotics were given. The patient was then placed in lithotomy position. The patient's buttocks were prepped and draped in the usual sterile fashion. A time-out was performed. An 18 gauge needle was used to locate the small perianal abscess. A 15 blade was used to make an incision over the needle directly onto the abscess. Copious purulent drainage was appreciated. Cultures were obtained. The wound was bluntly explored to free all loculations. The wound was copiously irrigated with sterile saline. The wound was packed with quarter-inch iodoform gauze and dressed with gauze, ABD, and mesh undergarment. The patient tolerated the procedure well. All instru ment, needle, and sponge counts were correct at the end of the procedure. The patient was aroused from sedation, extubated, and transferred to the postanesthesia care unit in good condition. ROULA CLEANING DO Jan 15, 2025 12:46 Electronically Signed by: ROULA CLEANING DO01/15/25 1246 Electronically Co-Signed by: PATIENT: LUIS FERNANDO GREEN MR#: [id number] : 1985 SEX: M AGE: 39 LOCATION: [facility] ORDER 3 STATUS: [facility] REPORT#: [id number] SERVICE REASON: rectal pain ORDERING PHYSICIAN: JHONATAN VARNER MD PROCEDURE: ABD PEL W - CT ABDOMEN/PELVIS W/CONTRAST CT ABDOMEN WITH CONTRAST. CT PELVIS WITH CONTRAST INDICATION: Rectal pain TECHNIQUE: Routine transaxial images using 5 mm slice thickness were obtained after the intravenous infusion of 75 mL of Omnipaque 350 without adverse effects. Oral contrast was not administered. Rectal contrast was not administered. Coronal and sagittal reformatted images acquired for interpretation. CT was performed with one or more of the following dose reduction techniques: Automated exposure control, adjustment of the mA and/or kV according to patient size, or use of iterative reconstruction technique. COMPARISON: 01/18/2023 FINDINGS: ABDOMEN: Heart size is normal. Visible lung bases are clear. The liver is normal in size and smooth in contour without lesions or biliary duct dilation. Diffuse low attenuation of the liver parenchyma suggests fatty change. The spleen is normal in size without lesions. The gallbladder is surgically absent. The pancreas appears normal without pancreatic duct dilation. The adrenal glands appear normal. Both kidneys appear unremarkable. Duplicated left ureter. Cortical nephrograms are symmetric and normal in appearance bilaterally. No evidence for intra-abdominal free air or organized fluid collection. No retrocrural, intraabdominal, or retroperitoneal lymphadenopathy identified. No aortic aneurysmal dilation or dissection identified. PELVIS: Tiny fat-containing nonobstructing left inguinal hernia. No evidence for free air or organized pelvic fluid collection. No significant pelvic adenopathy detected. 3.1 cm peripherally-enhancing perianal fluid collection on axial image 88. No associated air densities. Visualized small and large bowel loops appear unremarkable. No evidence for any rectal or perirectal abnormality. Terminal ileum appears normal. The appendix appears normal. The urinary bladder appears unremarkable. Visible osseous structures are intact. IMPRESSION: 1. 3.1 cm cyst perianal abscess, without evidence for any rectal or perirectal abnormality. 2. Hepatic steatosis. 3. Tiny fat-containing nonobstructing left inguinal hernia. 4. Additional minor findings, postsurgical changes, and pertinent negatives as reported. DICTATED BY: BRITTON MARKS MD DATE: 01/14/25 1011 ELECTRONICALLY SIGNED BY: BRITTON MARKS MD DATE: 01/14/25 1016 Wound culture: NAEROBIC CULTURE Preliminary 01/18/25-0759 MRL COLONY DESCRIPTION: REPORT 1: NO ANAEROBES AT 24-35 HOURS; STUDIES TO CONTINUE REPORT 2: NO ANAEROBES AT 48-59 HOURS; STUDIES TO CONTINUE Test(s) performed by: [facility] [address] [place] [address] AEROBIC CULTURE Final 01/18/25-0759 MRL EXTENDED SPECTRUM BETA-LACTAMASE ORGANISM IDENTIFIED. CRITICAL RESULT WAS CALLED BY GENEVIEVE KOCH ON 01/18/25 AT 0726. CRITICAL VALUES WERE READ BACK AND ACKNOWLEDGED BY GLADYS ÁLVAREZ ([facility] COLONY DESCRIPTION: REPORT 1: 1+ GRAM NEGATIVE RODS IDENTIFICATION AND SENSITIVITY TO FOLLOW REPORT 2: 1+ GRAM POSITIVE COCCI IN CHAINS IDENTIFICATION TO FOLLOW BETA HEMOLYTIC STREPTOCOCCUS GROUP G NO FURTHER WORK-UP DONE COMMENTS(R): ESBL COMMENT: BETA STREPTOCOCCUS REMAIN SUSCEPTIBLE TO PENICILLIN COMMENT: NO FURTHER WORK-UP ESCHERICHIA COLI STREPTOCOCCUS GROUP G E COLI M.I.C. RX --------- ---- AMPICILLIN >16 R* AZTREONAM 16 ESBL CEFAZOLIN >16 R* CEFTAZIDIME 8 ESBL CEFTAZIDIME/AVIBACTAM <=8 S CEFTRIAXONE >2 ESBL GENTAMICIN 4 I LEVOFLOXACIN <=0.5 S TOBRAMYCIN 8 R AMPICILLIN/SULBACTAM >16/8 R MEROPENEM <=1 S PIPERACILLIN/TAZOBACTAM <=8 S TRIMETHOPRIM/SUFLAMETHOXAZOLE <=2/38 S Assessment/Plan: ASSESSMENT: Sepsis due to perianal abscess, POA Perianal abscess, POA History of GERD Status post I&D of perianal abscess Discharge Instructions: Wound care Keep the area clean and dry Change the dressing as instructed or if it becomes wet or soiled Gently cleanse the area with warm water during showers. Avoid harsh soaps or clubbing. You are advised to take Sitz baths 2-3 times per day for 10-15 minutes to promote healing and drainage. Pat the area dry afterward Activity Avoid heavy lifting and strenuous activity for next few days You may resume light activities as tolerated Avoid prolonged sitting use a soft cushion if needed for comfort Pain management Take prescribed pain medications as directed Bowel care To prevent constipation eat a high-fiber diet and drink plenty of fluids You may use a stool softener to avoid straining Signs of infection or complication Contact your primary care if you experience any of the following Increased pain, redness or swelling around the incision Fever of greater than 100.4 Persistent or worsening drainage especially if foul-smelling Difficulty passing stool or worsening discomfort Follow up with the general surgery in 1 week for wound evaluation and further management Follow up with your primary in 3-7 days Home Medications: Discontinued Scripts Ondansetron (Ondansetron Odt) 4 Mg Tab.rapdis, 4 MG PO Q6HPRN PRN for nausea, #16 TAB 0 Refills Prov:YOBANY CORREA Sr., MD 07/20/23 Tamsulosin HCl (Flomax) 0.4 Mg Cap.er.24h, 0.4 MG PO DAILY for KIDNEY STONES for 10 Days, #10 CAPSULE. Prov:INESSA VARGAS DNP 01/18/23 Polymyxin B Sulfate/Tmp (Polytrim Ophth Soln) 20 Drop/Ml Opsol, 3 DROP OS QID for 5 Days, #10 ML 10 Refills Prov:FELIX MALCOLM MD 03/17/22 Time spent arranging discharge: 31-60 minutes ATTESTATION BY PHYSICIAN I have seen and examined the patient. I reviewed the documentation, medical decision making, and treatment plan as noted by the Resident provider above. I agree with the findings and plan of care. CHRIS PINK MD, KEERTI K MD Jan 17, 2025 14:00 CHRIS PINK MD Jan 18, 2025 11:57
[2025-01-17 16:00] VITALS: BP 112/72; PULSE 66; RESP 20; TEMP 98.1
--- NOTE | 2025-01-17 16:04 | PN ---
[facility] PROGRESS NOTE Date of Service: Jan 17, 2025 Time of Service: 16:02 SUBJECTIVE: [39-year-old male admitted for perirectal abscess, pain is being managed by IV pain medication. He went for debridement with Dr. Puckett. We will continue to follow. Cultures were sent we will monitor closely. Patient evaluated in the room, still with pain. I discussed that we are still awaiting for cultures to come out. For now he will continue with IV antibiotics. ] 01/17/2025 - patient is currently pain-free and only complains mild pain and discomfort during dressing changes. General surgery cleared the patient for discharge and patient is hemodynamically stable and labs are unremarkable. Patient is still pending wound cultures. Plan to discharge the patient tomorrow with the recommendations from ID REVIEW OF SYSTEMS CONSTITUTIONAL: Denies fevers, chills, or night sweats. No unintentional weight loss reported. NEUROLOGICAL: Denies headache, amaurosis fugax, motor weakness, sensory deficit, vertigo/spinning sensation, gait abnormalities, or tremors. ENT: No hearing loss, otalgia, otorrhea, rhinitis, rhinorrhea, hoarseness, or sore throat. CARDIOVASCULAR: Denies any exertional angina, dyspnea on exertion, orthopnea, paroxysmal nocturnal dyspnea, palpitations, life-threatening arrhythmias, claudication. PULMONARY: Denies any shortness of breath, cough, phlegm/sputum, hemoptysis, pleuritic chest pain. SLEEP: Denies morning headaches, daytime somnolence or napping. Denies di fficulty falling asleep, staying asleep, waking from sleep. Denies knowledge of snoring. GASTROINTESTINAL: Denies any type of dysphagia to either liquids or solids. Denies nausea, vomiting, pyrosis, early satiety, abdominal pain, diarrhea, constipation, or changes in stool consistency or caliber. Denies coffee-ground emesis, hematemesis, hematochezia, or melanotic stools. GENITOURINARY: Denies frequency, urgency, nocturia, hematuria or incontinence (Storage/Irritative symptoms.) Low urinary stream, straining to void, urinary intermittency or hesitancy, splitting of the voiding stream, terminal dribbling. ENDOCRINOLOGIC: Denies polyuria, polydipsia, polyphagia or heat/cold intolerances. HEMATOLOGIC: Denies thrombophilia/previous clots, or coagulopathy/bleeding disorders. ONCOLOGIC: Denies personal history of malignancy. DERMATOLOGIC: Denies rashes or pruritus. PSYCHIATRIC: Denies any suicidal or homicidal ideation. Denies hallucinations. PHYSICAL EXAM GENERAL APPEARANCE: The patient is awake, alert, and oriented, in no acute cardiopulmonary distress. NEUROLOGICAL: Cranial nerves II-XII grossly intact. Motor is 5/5 in bilateral upper and lower extremities proximal to distal. No sensory deficits. HEENT: Face is symmetric. Pupils are equal and reactive. Extraocular movements are intact. NECK: Supple. No JVD. No thyromegaly. No submental, submandibular, pre- /postauricular, occipital or supraclavicular lymphadenopathy. CHEST: Normal chest expansion. No Telemetry. LUNGS: Absence of any rales, rhonchi or any wheezing. CARDIOVASCULAR: Regular. S1 and S2 normal. No appreciable rubs, murmurs or gallops. ABDOMEN: Soft, nontender, and nondistended. There is no rebound, voluntary guarding, or rigidity. : Deferred. No Dunne. EXTREMITIES: Non-edematous and not cyanotic. No clubbing. Good capillary refill. SKIN: No skin breakdown. Vital Signs (last 8hr) Date Time Temp Pulse Resp B/P (MAP) Pulse Ox O2 Delivery O2 Flow Rate FiO2 01/17/25 12:06 98.2 71 20 111/68 97 Room Air 01/17/25 08:05 98.1 58 20 107/74 96 Room Air LABS: Laboratory: Test 01/17/25 05:35 01/16/25 06:02 Range/Units White Blood Count 9.1 4.8-10.8 K/uL Red Blood Count 4.47 L 4.50-6.20 MIL/uL Hemoglobin 14.3 14.0-18.0 g/dL Hematocrit 43.0 42-54 % Mean Corpuscular Volume 96.2 79-99 fL Mean Corpuscular Hemoglobin 32.0 27.0-33.0 pg Mean Corpuscular Hemoglobin Concent 33.3 32.0-36.0 g/dL Red Cell Distribution Width 12.2 11.0-15.5 % Platelet Count 325 130-400 K/uL Mean Platelet Volume 9.1 7.5-10.5 fL Nucleated Red Blood Cells 0.0 0.0-0.19 % Sodium Level 137 136-145 mmol/L Potassium Level 3.7 3.5-5.1 mmol/L Chloride Level 103 101-111 mmol/L Carbon Dioxide Level 30 21-32 mmol/L Blood Urea Nitrogen 18 7-18 mg/dL Creatinine 1.3 0.5-1.3 mg/dL Glomerular Filtration Rate Calc 71 >90 mL/min Random Glucose 97 70-105 mg/dL Total Calcium 8.9 8.5-10.1 mg/dL Hemoglobin A1c 5.4 4.0-6.0 % Estimated Average Glucose (eAG) 108 70-126 mg/dL Current Medications Medications (Trade) Dose Ordered Sig/Dane Route PRN Reason Start Time Stop Time Status Last Admin Dose Admin Acetaminophen (TYLenol 500MG TAB) 1,000 mg Q6H PRN PO MILD PAIN (1-3) 01/14/25 12:00 02/13/25 11:59 Acetaminophen (TYLenol 500MG TAB) 1,000 mg Q6H PRN PO TEMPERATURE GREATER THAN 100.4 01/14/25 12:00 02/13/25 11:59 Famotidine (Pepcid 20mg Tab) 20 mg BID PO 01/17/25 21:00 02/16/25 20:59 Magnesium Sulfate 50 ml @ 0 mls/hr PROTOCOL PRN IV mgprotocol 01/17/25 10:00 02/16/25 09:59 Morphine Sulfate (morPHINE 2MG SYG) 1 mg Q4PRN PRN IVP MODERATE PAIN (4-6) 01/15/25 10:00 01/22/25 09:59 01/15/25 14:59 1 MG Morphine Sulfate (morPHINE 2MG SYG) 2 mg TID PRN IVP SEVERE PAIN (7-10) 01/17/25 10:00 01/21/25 11:59 Morphine Sulfate (morPHINE 2MG SYG) 2 mg TIDP PRN IVP SEVERE PAIN (7-10) 01/14/25 12:00 01/17/25 09:52 DC 01/17/25 05:33 2 MG Ondansetron HCl (zoFRAN 4MG TABLET) 4 mg Q6H PRN PO NAUSEA/VOMITING 01/17/25 10:00 02/16/25 09:59 Piperacillin Sod/ Tazobactam Sod (Zosyn 3.375gm+NS 50ml) 3.375 gm Q12H STAT IV 01/14/25 10:29 01/14/25 10:30 DC 01/14/25 10:38 3.375 GM Piperacillin Sod/ Tazobactam Sod (Zosyn 3.375gm+NS 50ml) 3.375 gm Q8H IVPB 01/14/25 12:00 01/14/25 11:54 DC Piperacillin Sod/ Tazobactam Sod (Zosyn 3.375gm+NS 50ml) 3.375 gm Q8H IVPB 01/14/25 18:30 01/24/25 18:29 01/17/25 10:35 3.375 GM Potassium Chloride 100 ml @ 100 mls/hr AD PRN IV POTASSIUM PROTOCOL 01/17/25 10:00 02/16/25 09:59 Potassium Chloride (K-Dur/Klor-Con 20meq) 20 meq AD PRN PO POTASSIUM PROTOCOL 01/17/25 10:00 02/16/25 09:59 Potassium Chloride (KCl 10% Elixir 20meq/15ml) 20 meq AD PRN PO POTASSIUM PROTOCOL 01/17/25 10:00 02/16/25 09:59 Sodium Chloride (NS 50ml) 50 ml AD IV 01/14/25 12:00 01/14/25 11:53 DC DIAGNOSTICS / RADIOLOGY: [ ] ASSESSMENT: Sepsis due to perianal abscess, POA Perianal abscess, POA History of GERD Status post I&D of perianal abscess Plan Patient to be admitted in medical floor Continue with IV antibiotics Surgeon has been consulted for debridement, patient is status post incision and debridement of perianal abscess POD #2 Continue with pain management Continue with GI and DVT prophylaxis Labs tomorrow Discharge planning pending on abscess culture and ID recommendations for discharge medication ATTESTATION BY PHYSICIAN I have seen and examined the patient. I reviewed the documentation, medical decision making, and treatment plan as noted by the resident provider above. I agree with the findings and plan of care. Bertin Puga MD, KEERTI K MD Jan 17, 2025 16:04
--- NOTE | 2025-01-17 16:44 | PN ---
INFECTIOUS DISEASE PROGRESS NOTE Date of Service: Jan 17, 2025 SUBJECTIVE: This is a 39-year-old male patient who was seen and examined at bedside in room 404. Patient is awake, alert and resting comfortably in bed. Patient is status post Incision and drainage of perirectal abscess on 01/15/2025. Patient has remained afebrile postop, latest temperature during visit was 98.2 and the WBC has trended down to 9.1. The preliminary culture results from the perirectal abscess is growing Gram-negative rods. We will continue on Zosyn and follow up on the final culture results. Patient and family member visiting at bedside was updated with this plan. PHYSICAL EXAM EYES: Anicteric. Pupils equal and reactive. HENT: No oral thrush seen, moist Oral mucosa NECK: Supple, no JVD or thyromegaly. LUNGS: Good air entry. No rales, no rhonchi. CARDIOVASCULAR: S1, S2 regular. No murmur heard. ABDOMEN: Soft, non tender, bowel sounds present, no organomegaly.. CENTRAL NERVOUS SYSTEM: Awake, alert, oriented x 3. SKIN: Perirectal abscess, status post I&D. LYMPHATICS: No peripheral lymphadenopathy MUSCULOSKELETAL: No joint swelling, erythema or tenderness. EXTREMITIES: No cyanosis or clubbing BACK: No deformity, no pressure ulcer. GENITOURINARY: No dysuria or hematuria. Vital Sign (Last 12 Hours) 01/17/25 01/17/25 01/17/25 08:05 12:06 16:00 Temp 98.1 98.2 98.1 Pulse 58 71 66 Resp 20 20 20 B/P (MAP) 107/74 111/68 112/72 Pulse Ox 96 97 98 O2 Delivery Room Air Room Air Room Air Intake & Output (last 24hrs) 01/16/25 01/16/25 01/17/25 15:00 23:00 07:00 Intake Total 50.0 ml Balance 50.0 ml LABS: Laboratory: Test 01/17/25 05:35 01/16/25 06:02 Range/Units White Blood Count 9.1 4.8-10.8 K/uL Red Blood Count 4.47 L 4.50-6.20 MIL/uL Hemoglobin 14.3 14.0-18.0 g/dL Hematocrit 43.0 42-54 % Mean Corpuscular Volume 96.2 79-99 fL Mean Corpuscular Hemoglobin 32.0 27.0-33.0 pg Mean Corpuscular Hemoglobin Concent 33.3 32.0-36.0 g/dL Red Cell Distribution Width 12.2 11.0-15.5 % Platelet Count 325 130-400 K/uL Mean Platelet Volume 9.1 7.5-10.5 fL Nucleated Red Blood Cells 0.0 0.0-0.19 % Sodium Level 137 136-145 mmol/L Potassium Level 3.7 3.5-5.1 mmol/L Chloride Level 103 101-111 mmol/L Carbon Dioxide Level 30 21-32 mmol/L Blood Urea Nitrogen 18 7-18 mg/dL Creatinine 1.3 0.5-1.3 mg/dL Glomerular Filtration Rate Calc 71 >90 mL/min Random Glucose 97 70-105 mg/dL Total Calcium 8.9 8.5-10.1 mg/dL Hemoglobin A1c 5.4 4.0-6.0 % Estimated Average Glucose (eAG) 108 70-126 mg/dL DIAGNOSTICS / RADIOLOGY: PATIENT: LUIS FERNANDO GREEN ACCT: [id number] LOC: [facility] U: [id number] AGE/SX: 39/M ROOM: [facility] RE01/14/[address]: KATHIE SANDOVAL MD : 1985 BED: 1 DIS: STATUS: ADM IN TLOC: SPEC: [id number] JAYA: 01/15/25-1240 STATUS: RES REQ: [id number] RECD: 01/15/25-[address]: ROULA CLEANING DO SOURCE: PERIRECTAL ENTR: 01/15/25-[address]: KATHIE SANDOVAL MD SPDESC: KRIS RUANO MD SELF,REFERRAL ORDERED: TONI CULTURE, AEROBIC CULTURE COMMENTS: Comment: PERIRECTAL ABCESS Has specimen been collected/obtained? Y Comment: PERIRECTAL ABCESS Has specimen been collected/obtained? Y Comment: PERIRECTAL ABCESS Has specimen been collected/obtained? Y Comment: PERIRECTAL ABCESS Has specimen been collected/obtained? Y Comment: PERIRECTAL ABCESS Has specimen been collected/obtained? Y Procedure Result Morteza Date-Time ANAEROBIC CULTURE Preliminary 01/17/25 [facility] COLONY DESCRIPTION: REPORT 1: NO ANAEROBES AT 24-35 HOURS; STUDIES TO CONTINUE Test(s) performed by: [facility] [address] [place] [place] [address] AEROBIC CULTURE Preliminary 01/17/25 [facility] COLONY DESCRIPTION: REPORT 1: 1+ GRAM NEGATIVE RODS IDENTIFICATION AND SENSITIVITY TO FOLLOW ASSESSMENT: Perirectal abscess. Leukocytosis. Left inguinal hernia. PLAN: Continue Zosyn. Continue pain management. Continue wound care as recommended by General surgery. We will follow up on the final perirectal abscess culture results. This case was reviewed and discussed with my supervising physician and the above assessment and plan was formulated and agreed upon. ATTESTATION BY PHYSICIAN I have seen and examined the patient. I reviewed the documentation, medical decision making, and treatment plan as noted by the mid-level provider above. I agree with the findings and plan of care. ROBERT ALONZO MD, MIRTA L [facility] Jan 17, 2025 16:44
[2025-01-17 19:00] VITALS: BP 114/73; PULSE 69; RESP 18; TEMP 98.3
[2025-01-17] MEDS: FAMOTIDINE 20MG TAB PO SCH (20:07)
[2025-01-17] MEDS: morPHINE 2 MG SYG IVP PRN (20:43)
--- NOTE | 2025-01-17 21:00 | NUR ---
WOUND DRESSING PATIENT UP TO SHOWER PULLED IODOFORM PACKING FROM PERIANAL WOUND, REPACK WOUND WITH 2 INCHES OF 1/4 IODOFORM PACKING , SCANT AMOUNT OF SEROS SANGUIENOUS DRAINAGE NOTED, TOLERATED WELL
[2025-01-18] VITALS: BP 113/71; PULSE 80; RESP 18; TEMP 98
[2025-01-18 04:00] VITALS: BP 100/64; PULSE 59; RESP 18; TEMP 97.9
[2025-01-18 08:00] VITALS: O2SAT 97
[2025-01-18 08:09] VITALS: BP 105/64; PULSE 67; RESP 18; TEMP 97.8
[2025-01-18] MEDS ORDERED: ACET-2743 PO (11:53)
[2025-01-18 11:57] VITALS: BP 116/79; PULSE 69; RESP 18; TEMP 98.3
--- NOTE | 2025-01-18 14:58 | PN ---
INFECTIOUS DISEASE PROGRESS NOTE Date of Service: Jan 18, 2025 SUBJECTIVE: This 39 year old male patient is being seen today at bedside. No fever or chills. No nausea or vomiting. Patient denies pain, no shortness of breath. Patient continues with wound care to perirectal area. He continues with a ntibiotics, patient will be going home with Levaquin orally. Went over plan of care with patient and . Both stated understanding. No over night event reported by nurse. PHYSICAL EXAM EYES: Anicteric. Pupils equal and reactive. HENT: No oral thrush seen, moist Oral mucosa NECK: Supple, no JVD or thyromegaly. LUNGS: Good air entry. No rales, no rhonchi. CARDIOVASCULAR: S1, S2 regular. No murmur heard. ABDOMEN: Soft, non tender, bowel sounds present, no organomegaly.. CENTRAL NERVOUS SYSTEM: Awake, alert, oriented x 3. SKIN: Perirectal abscess, status post I&D. LYMPHATICS: No peripheral lymphadenopathy MUSCULOSKELETAL: No joint swelling, erythema or tenderness. EXTREMITIES: No cyanosis or clubbing BACK: No deformity, no pressure ulcer. GENITOURINARY: No dysuria or hematuria. Vital Sign (Last 12 Hours) 01/18/25 01/18/25 01/18/25 01/18/25 04:00 08:00 08:09 11:57 Temp 97.9 97.9 98.2 Pulse 59 67 69 Resp 18 18 18 B/P (MAP) 100/64 105/64 116/79 Pulse Ox 96 97 97 98 O2 Delivery Room Air Room Air* Room Air Room Air O2 Flow Rate 0 FiO2 21 LABS: Laboratory: Test 01/17/25 05:35 Range/Units White Blood Count 9.1 4.8-10.8 K/uL Red Blood Count 4.47 L 4.50-6.20 MIL/uL Hemoglobin 14.3 14.0-18.0 g/dL Hematocrit 43.0 42-54 % Mean Corpuscular Volume 96.2 79-99 fL Mean Corpuscular Hemoglobin 32.0 27.0-33.0 pg Mean Corpuscular Hemoglobin Concent 33.3 32.0-36.0 g/dL Red Cell Distribution Width 12.2 11.0-15.5 % Platelet Count 325 130-400 K/uL Mean Platelet Volume 9.1 7.5-10.5 fL Nucleated Red Blood Cells 0.0 0.0-0.19 % Sodium Level 137 136-145 mmol/L Potassium Level 3.7 3.5-5.1 mmol/L Chloride Level 103 101-111 mmol/L Carbon Dioxide Level 30 21-32 mmol/L Blood Urea Nitrogen 18 7-18 mg/dL Creatinine 1.3 0.5-1.3 mg/dL Glomerular Filtration Rate Calc 71 >90 mL/min Random Glucose 97 70-105 mg/dL Total Calcium 8.9 8.5-10.1 mg/dL ANAEROBIC CULTURE Preliminary 01/18/25-0759 [facility] COLONY DESCRIPTION: REPORT 1: NO ANAEROBES AT 24-35 HOURS; STUDIES TO CONTINUE REPORT 2: NO ANAEROBES AT 48-59 HOURS; STUDIES TO CONTINUE Test(s) performed by: [facility] [address] [place] [address] AEROBIC CULTURE Final 01/18/25-758 [facility] EXTENDED SPECTRUM BETA-LACTAMASE ORGANISM IDENTIFIED. CRITICAL RESULT WAS CALLED BY GENEVIEVE KOCH ON 01/18/25 AT 0726. CRITICAL VALUES WERE READ BACK AND ACKNOWLEDGED BY GLADYS ÁLVAREZ ([facility] [place]) COLONY DESCRIPTION: REPORT 1: 1+ GRAM NEGATIVE RODS IDENTIFICATION AND SENSITIVITY TO FOLLOW REPORT 2: 1+ GRAM POSITIVE COCCI IN CHAINS IDENTIFICATION TO FOLLOW BETA HEMOLYTIC STREPTOCOCCUS GROUP G NO FURTHER WORK-UP DONE COMMENTS(R): ESBL COMMENT: BETA STREPTOCOCCUS REMAIN SUSCEPTIBLE TO PENICILLIN COMMENT: NO FURTHER WORK-UP ESCHERICHIA COLI STREPTOCOCCUS GROUP G E COLI M.I.C. RX --------- ---- AMPICILLIN >16 R* AZTREONAM 16 ESBL CEFAZOLIN >16 R* CEFTAZIDIME 8 ESBL CEFTAZIDIME/AVIBACTAM <=8 S CEFTRIAXONE >2 ESBL GENTAMICIN 4 I LEVOFLOXACIN <=0.5 S TOBRAMYCIN 8 R AMPICILLIN/SULBACTAM >16/8 R MEROPENEM <=1 S PIPERACILLIN/TAZOBACTAM <=8 S TRIMETHOPRIM/SUFLAMETHOXAZOLE <=2/38 S ASSESSMENT: Perirectal abscess. Leukocytosis. Left inguinal hernia. ESBL, E.coli infection PLAN: Continue Zosyn. Continue pain management. Continue wound care as recommended by General surgery. Levaquin PO once D/c for 10 days. This case was reviewed and discussed with my supervising physician and the above assessment and plan was formulated and agreed upon. TANI CHENEY [facility] Jan 18, 2025 14:58
--- NOTE | 2025-01-18 15:15 | NUR ---
PATIENT D/C HOME. MEDICATIONS REVIEWED AND SCRIPT GIVEN TO PATIENT AND SPOUSE FOR CONTINUED ANTIBIOTICS. WOUND CARE SUPPLIES GIVEN TO PATIENT. NO S/S OF DISTRESS NOTED. IV REMOVED. PATIENT WHEELED DOWNSTAIRS AND TRANSFERRED TO PERSONAL VEHICLE.
== END 2025-01-18 15:13 | disposition home or self-care (01) | DRG 854 ==
LOC: EDH 06:40 → EDHIP 06:41 → 4AH 22:36
PROVIDERS: ADMIT Hospitalist; ATTEND Hospitalist
PROC: 0D9Q0ZZ Drainage of Anus, Open Approach (ICD-10-PCS; principal; 2025-01-15 13:00)
DX: A41.9 Sepsis, unspecified organism (principal); K61.2 Anorectal abscess; B96.20 Unspecified Escherichia coli [E. coli] as the cause of diseases classified elsewhere; K40.90 Unilateral inguinal hernia, without obstruction or gangrene, not specified as recurrent; E66.9 Obesity, unspecified; K76.0 Fatty (change of) liver, not elsewhere classified; K21.9 Gastro-esophageal reflux disease without esophagitis; Z68.28 Body mass index [BMI] 28.0-28.9, adult; Z79.899 Other long term (current) drug therapy
CPT/HCPCS: 36415; 74177; 80048; 80053; 83036; 85025; 85027; 87040; 87070; 87076; 87086; 87186; 87205; A4606; G0378; J1100; J1171; J1885; J2003; J2250; J2270; J2405; J2543; J2704; J3010; J3490; J7120; Q9967; A4216; A4222; A4223; J0665